=== PATIENT | female | born 1935 | race African-American/Black ===

== ENCOUNTER 2016-09-07 16:44 | Emergency (ER) | payer MEDICARE, MEDICAID ==
[~2016-09-07] VITALS: Ht 167.6 cm; Wt 55.0 kg
[~2016-09-07 16:44] MED LIST: DONE10TA14 PO; LOSA50TA6 PO
[2016-09-07 17:00] VITALS: BP 159/87
[2016-09-07] MEDS ORDERED: IV NORMAL SALINE 1,000ML 1,000 ML IV SCH (17:33)
--- NOTE | 2016-09-07 17:36 | PHYS DOC ---
General Chief Complaint: WEAKNESS/GENERALIZED Stated Complaint: WEAK Time Seen by MD: 17:33 Source: patient Exam Limitations: no limitations Problems: History of Present Illness Initial Comments Pt is 81/F to ED c/o weakness. Pt states that for the past 2-3 weeks she's been feeling progressively weaker. No specific focal complaints, pt thinks her thyroid meds need to be adjusted. No HUNTLEY/focal weakness/cp/sob/fever/chills/n/v/d, no melena/hematochezia. Pt does state "I been using diapers the past 2-3 weeks" as she has had new stress incontinence. No new/acute symptoms today, pt just tired of feeling weak and wanted to come change her thyroid meds. Timing/Duration: getting worse (2-3 weeks) Severity: moderate Modifying Factors: worse with movement, improves with rest Associated Symptoms: malaise, weakness Allergies: Coded Allergies: No Known Drug Allergies (Unverified , 09/16/15) Past Medical History Medical History: COPD, hypertension, other (hypothyroid) Surgical History: noncontributory Social History Smoker: non-smoker Alcohol: none Drugs: none Review of Systems Constitutional: see HPI, denies chills, denies diaphoresis, denies fever Respiratory: denies cough, denies shortness of breath, denies wheezing Cardiovascular: denies chest pain, denies palpitations, denies syncope Gastrointestinal: denies abdominal pain, denies diarrhea, denies nausea, denies vomiting Genitourinary: see HPI Musculoskeletal: denies back pain, denies joint swelling, denies neck pain Psychiatric/Neurological: denies headache, denies numbness, denies paresthesia , denies seizure Hematologic/Lymphatic: denies blood clots, denies easy bleeding, denies easy bruising Physical Exam General Appearance: WD/WN, no apparent distress Eyes: bilateral eye normal inspection, bilateral eye PERRL, bilateral eye EOMI Ear, Nose, Throat: hearing grossly normal, normal ENT inspection, normal pharynx (very poor dentition) Neck: non-tender, supple Respiratory: normal breath sounds, no respiratory distress Cardiovascular: normal peripheral pulses, regular rate, rhythm Gastrointestinal: non tender, soft Back: no CVA tenderness, no vertebral tenderness Extremities: non-tender, normal inspection 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 Reassuring workup, UA +, TSH pending. Departure Time of Disposition: 18:51 Disposition: 01 HOME, SELF-CARE Diagnosis: UTI, generalized weakness, hypothyroid Condition: STABLE Patient Instructions: Urinary Tract Infection, [id number] Additional Instructions: Rest, no strenuous activity. Aggressive hydration with gatorade, water. Rx: bactrim ds Follow up with your doctor in 7-10 days for recheck, urine culture results, and your thyroid test results. Return to ED with new or changing symptoms. JOE ENGLAND DO September 07, 2016 17:36
--- NOTE | 2016-09-07 17:45 | EKG ---
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
[2016-09-07 18:25] LABS: BASO % 0 % (0-3); EOS % 0 % (0-3); HEMATOCRIT 45.5 % (36.0-47.0); HEMOGLOBIN 14.8 g/dL (12.0-15.5); LYMPH # 1.3 x10^3/uL (1.0-4.8); LYMPH % 29 % (24-48); MEAN CORPUSCULAR HEMOGLOBIN 29 pg (25-35); MEAN CORPUSCULAR HGB CONC 32 g/dL (31-37); MEAN CORPUSCULAR VOLUME 89 fL (79-100); MONO # 0.6 x10^3/uL (0.0-1.1); MONO % 14 % (0-9); NEUT # 2.5 x10^3uL (1.8-7.7); NEUT % 57 % (31-73); PLATELET COUNT 131 x10^3/uL (140-400); RED CELL DISTRIBUTION WIDTH 13.4 % (11.5-14.5); WHITE BLOOD COUNT 4.5 x10^3/uL (4.0-11.0)
[2016-09-07 18:31] LABS: AMORPHOUS SEDIMENT,UR PRESENT /HPF; BACTERIA,URINE 0 /HPF (0-FEW); BILIRUBIN,URINE NEG (NEG); CLARITY,URINE CLEAR; COLOR,URINE STRAW; GLUCOSE,URINE NEG (NEG); NITRITE,URINE NEG (NEG); RBC,URINE OCC /HPF (0-2); SQUAMOUS EPITHELIAL CELL,UR OCC /LPF; UROBILINOGEN,URINE 0.2 mg/dL (0.2 mg/dL)
[2016-09-07 18:32] LABS: CALCIUM 9.1 mg/dL (8.5-10.1); CREATININE 0.8 mg/dL (0.6-1.0); GFR 83.1; POTASSIUM 4.7 mmol/L (3.5-5.1)
[2016-09-07] MEDS ORDERED: SULF1TAB24 PO (18:53)
[2016-09-07] MEDS ORDERED: SMZ/TMP 800/160MG TABLET. PO ONE (19:00)
== END 2016-09-07 19:15 | disposition home or self-care (01) ==
LOC: ER 16:44
DX: N39.0 Urinary tract infection, site not specified (principal); R53.1 Weakness; E03.9 Hypothyroidism, unspecified; I10 Essential (primary) hypertension; J44.9 Chronic obstructive pulmonary disease, unspecified
CPT/HCPCS: 36415; 80048; 81001; 84443; 84484; 85027; 87086; 93005; 96360; 99285-25; J7030

== ENCOUNTER 2016-09-12 13:11 | Emergency (ER) | payer MEDICARE, MEDICAID ==
[~2016-09-12] VITALS: Ht 167.6 cm; Wt 55.0 kg
[~2016-09-12 13:11] MED LIST changes: +SULF1TAB24 PO
[2016-09-12] MEDS ORDERED: IV NORMAL SALINE 1,000ML 1,000 ML IV SCH (13:49)
[2016-09-12 14:17] LABS: BASO % 0 % (0-3); EOS % 0 % (0-3); HEMATOCRIT 42.4 % (36.0-47.0); HEMOGLOBIN 13.9 g/dL (12.0-15.5); LYMPH # 0.8 x10^3/uL (1.0-4.8); LYMPH % 25 % (24-48); MEAN CORPUSCULAR HEMOGLOBIN 29 pg (25-35); MEAN CORPUSCULAR HGB CONC 33 g/dL (31-37); MEAN CORPUSCULAR VOLUME 88 fL (79-100); MONO # 0.5 x10^3/uL (0.0-1.1); MONO % 16 % (0-9); NEUT # 1.9 x10^3uL (1.8-7.7); NEUT % 59 % (31-73); PLATELET COUNT 119 x10^3/uL (140-400); RED BLOOD COUNT 4.81 x10^6/uL (3.50-5.40); RED CELL DISTRIBUTION WIDTH 13.5 % (11.5-14.5); WHITE BLOOD COUNT 3.2 x10^3/uL (4.0-11.0)
--- NOTE | 2016-09-12 14:47 | PHYS DOC ---
General Chief Complaint: WEAKNESS/GENERALIZED Stated Complaint: WEAKNESS Time Seen by MD: 13:31 Source: patient, old records Exam Limitations: no limitations Problems: History of Present Illness Initial Comments Patient is an 81-year-old female brought to the ED by family with complaint of generalized weakness. Patient was seen here September 07 with the same symptoms, on that day full workup was overall reassuring her urinalysis contained products of infection she was treated empirically while urine culture process. Patient states she's been taking meds as prescribed but has persistent weakness. She describes sleeplessness, loss of interest in her hobbies, low energy level, and fluctuating appetite however denies depression or suicidal ideation. She denies any pain complaints at all, she saw her primary care physician yesterday for this and amlodipine was discontinued as a possible contributor to generalized weakness. Patient says earlier today her daughter convinced her to come back to the ED because the patient was wanting to stay in bed. No fever chills sweats or body aches no chest pain probable breathing headache or focal neurologic symptoms. Overall aside from being generally weak she denies any other complaints. Weakness is at rest and with activity Timing/Duration: constant (2-3 weeks at the minimum) Severity: moderate Modifying Factors: improves with other Associated Symptoms: weakness Allergies: Coded Allergies: No Known Drug Allergies (Unverified , 09/16/15) Past Medical History Medical History: COPD, hypertension, other (hypothyroid) Surgical History: noncontributory Social History Smoker: non-smoker Alcohol: none Drugs: none Review of Systems Constitutional: denies chills, denies diaphoresis, denies fever, malaise, weakness EENTM: denies eye pain, denies blurred vision, denies ear pain, denies nose pain, denies throat pain, denies mouth pain Respiratory: denies cough, denies shortness of breath, denies wheezing Cardiovascular: denies chest pain, denies palpitations, denies syncope Gastrointestinal: denies abdominal pain, denies diarrhea, denies nausea, denies vomiting Genitourinary: denies dysuria, denies frequency, denies hematuria Musculoskeletal: denies back pain, denies joint swelling, denies neck pain Psychiatric/Neurological: see HPI, denies headache, denies numbness, denies paresthesia, denies seizure Hematologic/Lymphatic: denies blood clots, denies easy bleeding, denies easy bruising Physical Exam General Appearance: WD/WN, no apparent distress Eyes: bilateral eye normal inspection, bilateral eye PERRL, bilateral eye EOMI (social are pink) Ear, Nose, Throat: hearing grossly normal (very poor dentition with numerous missing teeth, no notable active infection swelling erythema or tenderness.), normal ENT inspection, normal pharynx (..) Neck: non-tender, supple Respiratory: chest non-tender, normal breath sounds, no respiratory distress Cardiovascular: normal peripheral pulses, regular rate, rhythm, no edema Gastrointestinal: normal bowel sounds, non tender, soft Back: no CVA tenderness, no vertebral tenderness Extremities: non-tender, normal inspection, no pedal edema 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 No STEMI Urine culture from September 07 ED visit reviewed, normal ngozi noted that pathogenic organisms. Patient advised to discontinue her antibiotics. TSH reviewed from September 07 visit, within normal limits. Troponin by i-STAT is 0/undetectable, basic by i-STAT reassuring/unremarkable hemoglobin 16.3 I discussed the patient's symptoms with her and her daughter at length their questions answered. No specific emergent cause for her weakness noted in the ED. Outpatient workup indicated should symptoms persist. Today's WBC count 3.2 with 16 monocytes 119 platelets. Findings are nonspecific and possible occult viral process. Patient advised to continue following her primary care physician' s instructions regarding discontinuing amlodipine, advised to increase fluid intake and discontinue antibiotics. Follow-up with your doctor Thursday and return to the ED as needed. She expressed agreement and understanding of the treatment plan Departure Time of Disposition: 15:32 Disposition: HOME, SELF-CARE Diagnosis: generalized weakness Condition: STABLE Patient Instructions: Weakness, [id number] Additional Instructions: As discussed, no specific cause for your weakness was evident from today's visit. Discontinue the antibiotics prescribed on September 07 as urine culture did not grow out pathogenic bacteria. Aggressive hydration with Gatorade and water. Maintain a consistent diet. Follow-up with your doctor on Thursday to continue outpatient evaluation for generalized weakness. May require outpatient cardiology or psychiatry referrals. Return to the ED with new or changing symptoms. JOE ENGLAND DO Sep 12, 2016 14:47
[2016-09-12 15:09] LABS: HEMOGLOBIN ISTAT 16.3 gm/dL; POTASSIUM ISTAT 4.3 mmol/L (3.5-5.0)
[2016-09-12 15:50] VITALS: BP 140/66
--- NOTE | 2016-09-12 18:44 | EKG ---
[address] [address] Test Date: 2016-09-12 Test Time: 13:37:35 Pat Name: FELIPE GONZALES Department: Room: Gender: F Pharmacy Intake Technician: ANGELA : 1935 Requested By: JOE ENGLAND Order Number: [id number] Reading MD: Christiano Eaton Measurements Intervals [place] Rate: 68 P: 42 ME: 164 QRS: 25 QRSD: 64 T: 39 QT: 362 QTc: 389 Interpretive Statements SINUS RHYTHM NON SPECIFIC ST-T ABNORMALITY (ELEVATION) OTHERWISE NORMAL ECG RI6.01 Unconfirmed report Compared to ECG 09/07/2016 17:45:41 ST (T wave) deviation now present Electronically Signed On 09-17-2016 9:31:35 CDT by Christiano Eaton
== END 2016-09-12 15:50 | disposition home or self-care (01) ==
LOC: ER 13:11
DX: R53.1 Weakness (principal); G47.00 Insomnia, unspecified; E03.9 Hypothyroidism, unspecified; I10 Essential (primary) hypertension; J44.9 Chronic obstructive pulmonary disease, unspecified
CPT/HCPCS: 36415; 80047; 84484; 85027; 93005; 96360; 99285-25; J7030

== ENCOUNTER 2017-08-24 14:34 | Emergency (ER) | payer MEDICARE, OTHER ==
[~2017-08-24] VITALS: Ht 152.4 cm; Wt 45.0 kg
[2017-08-24] MEDS ORDERED: IOHEXOL 300 MG/ML 75 ML VIAL. IV ONE (15:15)
[2017-08-24 15:31] LABS: BASO % 0 % (0-3); EOS % 0 % (0-3); HEMATOCRIT 40.7 % (36.0-47.0); HEMOGLOBIN 13.3 g/dL (12.0-15.5); LYMPH # 0.7 x10^3/uL (1.0-4.8); LYMPH % 11 % (24-48); MEAN CORPUSCULAR HEMOGLOBIN 29 pg (25-35); MEAN CORPUSCULAR HGB CONC 33 g/dL (31-37); MEAN CORPUSCULAR VOLUME 89 fL (79-100); MONO # 0.4 x10^3/uL (0.0-1.1); MONO % 7 % (0-9); NEUT # 5.3 x10^3uL (1.8-7.7); NEUT % 82 % (31-73); PLATELET COUNT 150 x10^3/uL (140-400); RED BLOOD COUNT 4.58 x10^6/uL (3.50-5.40); RED CELL DISTRIBUTION WIDTH 14.2 % (11.5-14.5); WHITE BLOOD COUNT 6.4 x10^3/uL (4.0-11.0)
[2017-08-24 15:42] LABS: ALBUMIN 3.8 g/dL (3.4-5.0); ALBUMIN/GLOBULIN RATIO 1.2 (1.0-1.7); CALCIUM 8.9 mg/dL (8.5-10.1); CREATININE 0.8 mg/dL (0.6-1.0); GFR 82.9; POTASSIUM 3.6 mmol/L (3.5-5.1); TOTAL BILIRUBIN 0.6 mg/dL (0.2-1.0); TOTAL PROTEIN 7.1 g/dL (6.4-8.2)
[2017-08-24] MEDS ORDERED: HYDROmorphone PF 2 MG/ML VIAL IV/SQ PRN (17:00)
--- NOTE | 2017-08-24 17:04 | EKG ---
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
--- NOTE | 2017-08-24 17:11 | RAD ---
CT Abdomen and Pelvis With Intravenous Contrast: History: Epigastric pain after fall this morning. Comparison: None. Technique: After administration of intravenous contrast, 75 mL Omnipaque-300, CT of the abdomen and pelvis was performed. Exposure: One or more of the following individualized dose reduction techniques were utilized for this examination: 1. Automated exposure control 2. Adjustment of the mA and/or kV according to patient size 3. Use of iterative reconstruction technique Findings: Evaluation of enteric structures may be limited by lack of oral contrast. No free air is seen in the abdomen or pelvis. Trace amount free fluid present in the right hemipelvis, abnormal in a patient of this age. Liver, spleen, pancreas, and bilateral adrenal glands unremarkable. Aortic atherosclerosis is seen. Gallbladder is unremarkable. Bilateral kidneys enhance symmetrically. Callus cases involving left renal hilum are favored to be vascular. There are dilated small bowel loops measuring up to 3 cm in diameter. There is thought to be a transition point present in the midline of the pelvis (axial image 53), probably mid ileum. The distal ileum is collapsed. Several loops of dilated small bowel demonstrate mild inflammatory wall thickening and hyperenhancement. Degenerative changes are present in the spine. Impression: 1. Small bowel obstruction. Transition point is seen in the pelvis, thought to involve the mid ileum. The distal ileum is collapsed. 2. Several loops of dilated small bowel demonstrate mild wall thickening and hyperenhancement, suggesting mild inflammation. There is a small amount free fluid present in the pelvis. Electronically signed by: Jermaine De Oliveira MD (08/24/2017 5:08 PM) [facility]
--- NOTE | 2017-08-24 17:13 | RAD ---
EXAM: Chest, single view. HISTORY: Chest pain. COMPARISON: None. FINDINGS: A frontal view of the chest is obtained. There is no infiltrate, effusion or pneumothorax. The heart is normal in size. There is increased opacity along the inferior lateral right thorax due to asymmetric overlying soft tissue. There are advanced degenerative changes involving both shoulders. IMPRESSION: No acute pulmonary finding. Electronically signed by: Valentina Hilario MD (08/24/2017 5:10 PM) [facility]
[2017-08-24] MEDS ORDERED: PROCHLORPERAZINE 10 MG/2 ML VIAL. IV ONE (17:20)
--- NOTE | 2017-08-24 17:31 | PHYS DOC ---
Past History Past Medical History: Hypertension, Hypothyroid Past Surgical History: No Surgical History Alcohol Use: None Drug Use: None Adult General Chief Complaint Chief Complaint: MECHANICAL FALL HPI HPI 82-year-old female presents with epigastric abdominal pain after a fall at home. Patient tripped over something on the floor and hit her abdomen against the coffee table. She denies hitting her head or loss of consciousness. She is able recall all of the events of the fall and afterward. This occurred around 11 AM this morning. Patient arrived about 4 hours later with worsening abdominal pain. Patient denies vomiting but has mild nausea. She denies fever or chills. She is no other injuries. Review of Systems Review of Systems Constitutional: Denies fever or chills [] Eyes: Denies change in visual acuity, redness, or eye pain [] HENT: Denies nasal congestion or sore throat [] Respiratory: Denies cough or shortness of breath [] Cardiovascular: No additional information not addressed in HPI [] GI: abdominal pain [] : Denies dysuria or hematuria [] Musculoskeletal: Denies back pain or joint pain [] Integument: Denies rash or skin lesions [] Neurologic: Denies headache, focal weakness or sensory changes [] Endocrine: Denies polyuria or polydipsia [] All other systems were reviewed and found to be within normal limits, except as documented in this note. Current Medications Current Medications Current Medications Medications (Trade) Dose Ordered Sig/Silvano Start Time Stop Time Status Last Admin Dose Admin Hydromorphone HCl (Dilaudid) 0.5 mg PRN Q15MIN PRN 08/24/17 17:00 08/25/17 16:59 08/24/17 17:08 0.5 MG Iohexol (Omnipaque 300 Mg/ml) 75 ml 1X ONCE 08/24/17 15:15 08/24/17 15:16 DC 08/24/17 16:11 75 ML Prochlorperazine Edisylate (Compazine) 5 mg 1X ONCE 08/24/17 17:20 08/24/17 17:21 DC 08/24/17 17:07 5 MG Allergies Allergies Allergies Coded Allergies Type Severity Reaction Last Updated Verified No Known Drug Allergies 08/24/17 No Physical Exam Physical Exam Constitutional: Well developed, well nourished, no acute distress, non-toxic appearance. [] HENT: Normocephalic, atraumatic, bilateral external ears normal, oropharynx moist, no oral exudates, nose normal. [] Eyes: PERRLA, EOMI, conjunctiva normal, no discharge. [] Neck: Normal range of motion, no tenderness, supple, no stridor. [] Cardiovascular:Heart rate regular rhythm, no murmur [] Lungs & Thorax: Bilateral breath sounds clear to auscultation [] Abdomen: Bowel sounds normal, soft, tenderness below umbilicus. [] Skin: Warm, dry, no erythema, no rash. [] Back: No tenderness, no CVA tenderness. [] Extremities: No tenderness, no cyanosis, no clubbing, ROM intact, no edema. [] Neurologic: Alert and oriented X 3, normal motor function, normal sensory function, no focal deficits noted. [] Psychologic: Affect normal, judgement normal, mood normal. [] Current Patient Data Vital Signs Vital Signs Date Time Temp Pulse Resp B/P (MAP) Pulse Ox O2 Delivery O2 Flow Rate FiO2 08/24/17 17:08 16 Room Air 08/24/17 16:41 79 165/73 (103) 98 08/24/17 14:46 98.2 Lab Results Laboratory Tests Test 08/24/17 15:14 White Blood Count 6.4 x10^3/uL (4.0-11.0) Red Blood Count 4.58 x10^6/uL (3.50-5.40) Hemoglobin 13.3 g/dL (12.0-15.5) Hematocrit 40.7 % (36.0-47.0) Mean Corpuscular Volume 89 fL (79-100) Mean Corpuscular Hemoglobin 29 pg (25-35) Mean Corpuscular Hemoglobin Concent 33 g/dL (31-37) Red Cell Distribution Width 14.2 % (11.5-14.5) Platelet Count 150 x10^3/uL (140-400) Neutrophils (%) (Auto) 82 % (31-73) H Lymphocytes (%) (Auto) 11 % (24-48) L Monocytes (%) (Auto) 7 % (0-9) Eosinophils (%) (Auto) 0 % (0-3) Basophils (%) (Auto) 0 % (0-3) Neutrophils # (Auto) 5.3 x10^3uL (1.8-7.7) Lymphocytes # (Auto) 0.7 x10^3/uL (1.0-4.8) L Monocytes # (Auto) 0.4 x10^3/uL (0.0-1.1) Eosinophils # (Auto) 0.0 x10^3/uL (0.0-0.7) Basophils # (Auto) 0.0 x10^3/uL (0.0-0.2) Sodium Level 138 mmol/L (136-145) Potassium Level 3.6 mmol/L (3.5-5.1) Chloride Level 100 mmol/L (98-107) Carbon Dioxide Level 27 mmol/L (21-32) Anion Gap 11 (6-14) Blood Urea Nitrogen 14 mg/dL (7-20) Creatinine 0.8 mg/dL (0.6-1.0) Estimated GFR (Cockcroft-Gault) 82.9 BUN/Creatinine Ratio 18 (6-20) Glucose Level 88 mg/dL (70-99) Calcium Level 8.9 mg/dL (8.5-10.1) Total Bilirubin 0.6 mg/dL (0.2-1.0) Aspartate Amino Transferase (AST) 16 U/L (15-37) Alanine Aminotransferase (ALT) 20 U/L (14-59) Alkaline Phosphatase 109 U/L (46-116) Troponin I Quantitative < 0.017 ng/mL (0-0.055) Total Protein 7.1 g/dL (6.4-8.2) Albumin 3.8 g/dL (3.4-5.0) Albumin/Globulin Ratio 1.2 (1.0-1.7) EKG EKG Normal sinus rhythm, rate 73, normal axis, no ST elevations or depressions.[] Radiology/Procedures Radiology/Procedures CT Abdomen and Pelvis With Intravenous Contrast: History: Epigastric pain after fall this morning. Comparison: None. Technique: After administration of intravenous contrast, 75 mL Omnipaque-300, CT of the abdomen and pelvis was performed. Exposure: One or more of the following individualized dose reduction techniques were utilized for this examination: 1. Automated exposure control 2. Adjustment of the mA and/or kV according to patient size 3. Use of iterative reconstruction technique Findings: Evaluation of enteric structures may be limited by lack of oral contrast. No free air is seen in the abdomen or pelvis. Trace amount free fluid present in the right hemipelvis, abnormal in a patient of this age. Liver, spleen, pancreas, and bilateral adrenal glands unremarkable. Aortic atherosclerosis is seen. Gallbladder is unremarkable. Bilateral kidneys enhance symmetrically. Callus cases involving left renal hilum are favored to be vascular. There are dilated small bowel loops measuring up to 3 cm in diameter. There is thought to be a transition point present in the midline of the pelvis (axial image 53), probably mid ileum. The distal ileum is collapsed. Several loops of dilated small bowel demonstrate mild inflammatory wall thickening and hyperenhancement. Degenerative changes are present in the spine. Impression: 1. Small bowel obstruction. Transition point is seen in the pelvis, thought to involve the mid ileum. The distal ileum is collapsed. 2. Several loops of dilated small bowel demonstrate mild wall thickening and hyperenhancement, suggesting mild inflammation. There is a small amount free fluid present in the pelvis. Electronically signed by: Jermaine De Oliveira MD (08/24/2017 5:08 PM) [place] [id number] EXAM: Chest, single view. HISTORY: Chest pain. COMPARISON: None. FINDINGS: A frontal view of the chest is obtained. There is no infiltrate, effusion or pneumothorax. The heart is normal in size. There is increased opacity along the inferior lateral right thorax due to asymmetric overlying soft tissue. There are advanced degenerative changes involving both shoulders. IMPRESSION: No acute pulmonary finding. Electronically signed by: Valentina Hilario MD (08/24/2017 5:10 PM) [facility] [] Course & Med Decision Making Course & Med Decision Making Pertinent Labs and Imaging studies reviewed. (See chart for details) The patient's initial labs are unremarkable. Her CT of the abdomen and pelvis shows a small bowel obstruction. I have additionally ordered EKG, chest x-ray, and lactic acid. Patient's EKG is unremarkable. Her chest x-ray is unremarkable. Discussed the case with the surgeon, Dr. Cosby. He has advised an NG tube and admitting the patient at [facility] to the hospitalist. I then contacted the hospitalist Dr. Genao and she has accepted the patient for admission. Discussed this with the patient and the family and they are in agreement. Dragon Disclaimer Dragon Disclaimer This electronic medical record was generated, in whole or in part, using a voice recognition dictation system. Departure Departure: Referrals: LORI ROMERO (PCP) ANNIKA PEREZ DO August 24, 2017 17:31
[2017-08-24 19:43] VITALS: BP 171/83
== END 2017-08-24 19:45 | disposition short-term general hospital (02) ==
LOC: ER 14:34
DX: K56.699 Other intestinal obstruction unspecified as to partial versus complete obstruction (principal); E03.9 Hypothyroidism, unspecified; I10 Essential (primary) hypertension; W01.198A Fall on same level from slipping, tripping and stumbling with subsequent striking against other object, initial encounter; Y93.89 Activity, other specified; Y99.8 Other external cause status; Y92.098 Other place in other non-institutional residence as the place of occurrence of the external cause
CPT/HCPCS: 36415; 43752; 71045; 74177; 80053; 83605; 84484; 85025; 93005; 96374; 96375; 99285; J0780; J1170; Q9967; 31500

== ENCOUNTER 2019-01-24 15:52 | Emergency (ER) | payer MEDICARE, MEDICAID ==
[~2019-01-24] VITALS: Ht 167.6 cm; Wt 45.0 kg
[~2019-01-24 15:52] MED LIST changes: -LOSA50TA6 PO; +LOSA50TA86 PO
[2019-01-24] MEDS ORDERED: IV NORMAL SALINE 1,000ML 1,000 ML IV ONE (16:15)
--- NOTE | 2019-01-24 16:38 | EKG ---
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
[2019-01-24 17:06] LABS: BASO % 1 % (0-3); EOS # 0.1 x10^3/uL (0.0-0.7); EOS % 2 % (0-3); HEMATOCRIT 42.2 % (36.0-47.0); HEMOGLOBIN 13.5 g/dL (12.0-15.5); LYMPH # 0.8 x10^3/uL (1.0-4.8); LYMPH % 24 % (24-48); MEAN CORPUSCULAR HEMOGLOBIN 29 pg (25-35); MEAN CORPUSCULAR HGB CONC 32 g/dL (31-37); MEAN CORPUSCULAR VOLUME 91 fL (79-100); MONO # 0.5 x10^3/uL (0.0-1.1); MONO % 16 % (0-9); NEUT % 58 % (31-73); PLATELET COUNT 133 x10^3/uL (140-400); RED BLOOD COUNT 4.65 x10^6/uL (3.50-5.40); RED CELL DISTRIBUTION WIDTH 13.7 % (11.5-14.5); WHITE BLOOD COUNT 3.4 x10^3/uL (4.0-11.0)
--- NOTE | 2019-01-24 17:06 | RAD ---
AP chest x-ray COMPARISON: Chest x-ray August 24, 2017 and priors. HISTORY: Weakness. FINDINGS: Calcified granulomas right lung base stable to prior x-rays back to 2016. Calcified granulomas left lower lobe and left hilum also stable. There is deviation of the cervicothoracic trachea to the left similar but more pronounced relative to prior x-rays. Aortic arch calcified plaque. Heart size normal. No pneumothorax, pleural opacities or pleural effusions. Thoracic disc osteophytes and mild scoliosis. Arthritic change shoulders. IMPRESSION: 1. No acute process in the chest. 2. Leftward deviation of the cervicothoracic trachea more pronounced relative to prior studies could indicate an enlarging thyroid nodule/mass, cervical mass/adenopathy or aneurysm. 3. Old granulomatous process again noted. Electronically signed by: Maldonado Dalton MD (01/24/2019 5:03 PM) [facility]
--- NOTE | 2019-01-24 17:16 | RAD ---
CT head without contrast. CT cervical spine without contrast. PQRS statement: CT scans at this facility use dose reduction including either automated exposure control, iterative reconstructions, and /or weight based radiation dosing via mA and kV modification when appropriate to reduce radiation dose to as low as reasonably achievable. HISTORY: Fall. Neck pain. TECHNIQUE: Noncontrast CT imaging of the head and cervical spine multiplanar reconstructions was acquired. COMPARISON: CT head May 09, 2015. CT head findings: There is cavitary encephalomalacia of the right parietal lobe above the parietal occipital sulcus new from priorexam most likely an chronic infarct or sequela of old trauma. No acute ischemic change evident. Extensive cerebral white matter hypoattenuation is more pronounced may represent progressive small vessel ischemic disease. Generalized brain atrophy is stable. No intracranial hemorrhage, mass or hydrocephalus. Chronic right thalamus hypodense ischemic infarct stable. Intracranial arterial vascular calcifications. Opacification of the left frontal, ethmoid and maxillary sinuses similar the prior exam. Orbits, mastoids and bones are unremarkable. IMPRESSION: No acute intracranial CT abnormality. 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 Chronic sinus disease as described above. CT cervical spine findings: Precervical junction intact. Cervical vertebral body height and alignment intact. 2 mm anterolisthesis of C4 on C5 associated with advanced facet arthritis. 1 mm anterolisthesis of C7 on T1 associated with advanced facet arthritis. No fracture of the cervical spine. Right apex 7 mm subsolid pulmonary nodule the solid component represents 5-6 mm of the nodule. Multilevel cervical disc height loss, disc bulges, endplate spurs, uncovertebral spurs and facet spurs with spinal canal and neural foraminal stenoses. Thyroid nodules with a 3 cm dominant right thyroid lobe nodule with calcification. IMPRESSION: 1. No acute osseous injury of the cervical spine. Cervical disc disease as described above. 2. 3 cm partially calcified right thyroid lobe nodule. Consider further assessment with thyroid sonography given its size and calcification which likely increases the probability of neoplasia, to assess for fine-needle aspiration. 3. 7 mm subsolid right upper lobe pulmonary nodule as described above per Fleischner guidelines consider follow-up CT imaging in 3-6 months to document that this resolves or remains stable. Electronically signed by: Maldonado Dalton MD (01/24/2019 5:13 PM) [facility]
[2019-01-24 17:19] LABS: ALBUMIN 3.2 g/dL (3.4-5.0); ALBUMIN/GLOBULIN RATIO 0.9 (1.0-1.7); CALCIUM 8.5 mg/dL (8.5-10.1); CREATININE 0.8 mg/dL (0.6-1.0); GFR 82.7; TOTAL BILIRUBIN 0.3 mg/dL (0.2-1.0); TOTAL PROTEIN 6.8 g/dL (6.4-8.2)
[2019-01-24 17:20] LABS: POTASSIUM 4.2 mmol/L (3.5-5.1)
[2019-01-24] MEDS ORDERED: NAPR-695 PO (18:08)
--- NOTE | 2019-01-24 18:08 | PHYS DOC ---
Past History Past Medical History: Hypertension, Hypothyroid Additional Past Medical Histor: Possible dementia (NESTOR WARREN DO) Past Surgical History: Other Additional Past Surgical Histo: GI (NESTOR WARREN DO) Smoking: Quit Greater Than 1 Year Alcohol Use: None Drug Use: None (NESTOR WARREN DO) Adult General Chief Complaint Chief Complaint: Neck Pain HPI HPI 83-year-old female presents with her family with report of neck pain. Patient reports history of fall approximately 4-5 days ago. Patient does not specifically remember how she fell. Denies any headache. Denies chest pain. Denies shortness of breath. Patient reports some increased urinary frequency. Family reports concern that patient might have some short-term memory loss possibly secondary to dementia however patient has not had a official diagnosis. Family reports patient has been acting otherwise normal. (NESTOR WARREN DO) Review of Systems Review of Systems Constitutional: Denies fever or chills Eyes: Denies redness or eye pain HENT: Denies nasal congestion or sore throat Respiratory: Denies cough or shortness of breath Cardiovascular: Denies chest pain or palpitations GI: Denies abdominal pain, nausea, or vomiting : Denies hematuria; reports urinary frequency Musculoskeletal: Denies joint pain; reports neck pain Integument: Denies rash or skin lesions Neurologic: Denies headache, focal weakness or sensory changes Complete systems were reviewed and found to be within normal limits, except as documented in this note. (NESTOR WARREN DO) Current Medications Current Medications Current Medications Medications (Trade) Dose Ordered Sig/Silvano Start Time Stop Time Status Last Admin Dose Admin Sodium Chloride 1,000 ml @ 1,000 mls/hr 1X ONCE 01/24/19 16:15 01/24/19 17:14 DC 01/24/19 16:15 1,000 MLS/HR (NESTOR WARREN DO) Allergies Allergies Allergies Coded Allergies Type Severity Reaction Last Updated Verified No Known Drug Allergies 08/24/17 No (NESTOR WARREN DO) Physical Exam Physical Exam Constitutional: Well developed, well nourished, no acute distress, non-toxic appearance HENT: Normocephalic, atraumatic, oropharynx moist Eyes: PERRL, EOMI, conjunctiva normal, no discharge Neck: Normal range of motion, no midline tenderness, mild paraspinal tenderness at base of skull, supple Cardiovascular: Heart rate normal, regular rhythm Lungs & Thorax: Bilateral breath sounds clear to auscultation, no wheezing Abdomen: Soft, no tenderness Skin: Warm, dry, no erythema, no rash Back: No tenderness, no CVA tenderness Extremities: No tenderness, ROM intact, no edema Neurologic: Alert and oriented X 2, patient confused to year but able to give month and president, normal motor function, normal sensory function, no focal deficits noted Psychologic: Affect normal, judgement normal (NESTOR WARREN DO) Current Patient Data Vital Signs Vital Signs Date Time Temp Pulse Resp B/P (MAP) Pulse Ox O2 Delivery O2 Flow Rate FiO2 01/24/19 16:13 97.8 90 18 98 Room Air Lab Results Laboratory Tests Test 01/24/19 16:25 White Blood Count 3.4 x10^3/uL (4.0-11.0) L Red Blood Count 4.65 x10^6/uL (3.50-5.40) Hemoglobin 13.5 g/dL (12.0-15.5) Hematocrit 42.2 % (36.0-47.0) Mean Corpuscular Volume 91 fL (79-100) Mean Corpuscular Hemoglobin 29 pg (25-35) Mean Corpuscular Hemoglobin Concent 32 g/dL (31-37) Red Cell Distribution Width 13.7 % (11.5-14.5) Platelet Count 133 x10^3/uL (140-400) L Neutrophils (%) (Auto) 58 % (31-73) Lymphocytes (%) (Auto) 24 % (24-48) Monocytes (%) (Auto) 16 % (0-9) H Eosinophils (%) (Auto) 2 % (0-3) Basophils (%) (Auto) 1 % (0-3) Neutrophils # (Auto) 2.0 x10^3uL (1.8-7.7) Lymphocytes # (Auto) 0.8 x10^3/uL (1.0-4.8) L Monocytes # (Auto) 0.5 x10^3/uL (0.0-1.1) Eosinophils # (Auto) 0.1 x10^3/uL (0.0-0.7) Basophils # (Auto) 0.0 x10^3/uL (0.0-0.2) Prothrombin Time 10.0 SEC (9.4-11.4) Prothrombin Time INR 1.0 (0.9-1.1) Activated Partial Thromboplast Time 24 SEC (23-33) Sodium Level 139 mmol/L (136-145) Potassium Level 4.2 mmol/L (3.5-5.1) Chloride Level 103 mmol/L (98-107) Carbon Dioxide Level 28 mmol/L (21-32) Anion Gap 8 (6-14) Blood Urea Nitrogen 12 mg/dL (7-20) Creatinine 0.8 mg/dL (0.6-1.0) Estimated GFR (Cockcroft-Gault) 82.7 BUN/Creatinine Ratio 15 (6-20) Glucose Level 99 mg/dL (70-99) Lactic Acid Level 2.0 mmol/L (0.4-2.0) Calcium Level 8.5 mg/dL (8.5-10.1) Magnesium Level 2.0 mg/dL (1.8-2.4) Total Bilirubin 0.3 mg/dL (0.2-1.0) Aspartate Amino Transferase (AST) 17 U/L (15-37) Alanine Aminotransferase (ALT) 11 U/L (14-59) L Alkaline Phosphatase 99 U/L (46-116) Total Protein 6.8 g/dL (6.4-8.2) Albumin 3.2 g/dL (3.4-5.0) L Albumin/Globulin Ratio 0.9 (1.0-1.7) L (NESTOR WARREN DO) EKG EKG @1636 NSR at 80bpm, NO ST elevation, QRS 64ms, QT/QTc 368/428ms (NESTOR WARREN DO) Radiology/Procedures Radiology/Procedures PROCEDURE: CHEST AP ONLY AP chest x-ray COMPARISON: Chest x-ray August 24, 2017 and priors. HISTORY: Weakness. FINDINGS: Calcified granulomas right lung base stable to prior x-rays back to 2016. Calcified granulomas left lower lobe and left hilum also stable. There is deviation of the cervicothoracic trachea to the left similar but more pronounced relative to prior x-rays. Aortic arch calcified plaque. Heart size normal. No pneumothorax, pleural opacities or pleural effusions. Thoracic disc osteophytes and mild scoliosis. Arthritic change shoulders. IMPRESSION: 1. No acute process in the chest. 2. Leftward deviation of the cervicothoracic trachea more pronounced relative to prior studies could indicate an enlarging thyroid nodule/mass, cervical mass/adenopathy or aneurysm. 3. Old granulomatous process again noted. Electronically signed by: Maldonado Dalton MD (01/24/2019 5:03 PM) [facility] PROCEDURE: CT HEAD AND CERVICAL SPINE WO CT head without contrast. CT cervical spine without contrast. PQRS statement: CT scans at this facility use dose reduction including either automated exposure control, iterative reconstructions, and /or weight based radiation dosing via mA and kV modification when appropriate to reduce radiation dose to as low as reasonably achievable. HISTORY: Fall. Neck pain. TECHNIQUE: Noncontrast CT imaging of the head and cervical spine multiplanar reconstructions was acquired. COMPARISON: CT head May 09, 2015. CT head findings: There is cavitary encephalomalacia of the right parietal lobe above the parietal occipital sulcus new from priorexam most likely an chronic infarct or sequela of old trauma. No acute ischemic change evident. Extensive cerebral white matter hypoattenuation is more pronounced may represent progressive small vessel ischemic disease. Generalized brain atrophy is stable. No intracranial hemorrhage, mass or hydrocephalus. Chronic right thalamus hypodense ischemic infarct stable. Intracranial arterial vascular calcifications. Opacification of the left frontal, ethmoid and maxillary sinuses similar the prior exam. Orbits, mastoids and bones are unremarkable. IMPRESSION: No acute intracranial CT abnormality. 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 Chronic sinus disease as described above. CT cervical spine findings: Precervical junction intact. Cervical vertebral body height and alignment intact. 2 mm anterolisthesis of C4 on C5 associated with advanced facet arthritis. 1 mm anterolisthesis of C7 on T1 associated with advanced facet arthritis. No fracture of the cervical spine. Right apex 7 mm subsolid pulmonary nodule the solid component represents 5-6 mm of the nodule. Multilevel cervical disc height loss, disc bulges, endplate spurs, uncovertebral spurs and facet spurs with spinal canal and neural foraminal stenoses. Thyroid nodules with a 3 cm dominant right thyroid lobe nodule with calcification. IMPRESSION: 1. No acute osseous injury of the cervical spine. Cervical disc disease as described above. 2. 3 cm partially calcified right thyroid lobe nodule. Consider further assessment with thyroid sonography given its size and calcification which likely increases the probability of neoplasia, to assess for fine-needle aspiration. 3. 7 mm subsolid right upper lobe pulmonary nodule as described above per Fleischner guidelines consider follow-up CT imaging in 3-6 months to document that this resolves or remains stable. Electronically signed by: Maldonado Dalton MD (01/24/2019 5:13 PM) [facility] (NESTOR WARREN DO) Course & Med Decision Making Course & Med Decision Making Pertinent Labs and Imaging studies reviewed. (See chart for details) Patient presents with report of fall at home however cannot remember why she fell. Patient apparently has had some difficulty with her short-term memory. 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 Patient otherwise neurologically intact. No midline cervical spine tenderness noted. No signs of skull fracture. CT head/cervical spine without traumatic injury. Patient noted to have incidental thyroid nodule as well as pulmonary nodule. A copy of CT imaging provided to patient for outpatient follow-up. Chest x-ray without signs of infection. Labs obtained and posted to chart. Thyroid studies pending for PCP. UA without signs of infection. Patient stable for discharge with outpatient follow-up with PCP. Discussed findings and plan with patient and family, who acknowledge understanding and agreement. (NESTOR WARREN DO) Dragon Disclaimer Dragon Disclaimer This electronic medical record was generated, in whole or in part, using a voice recognition dictation system. (NESTOR WARREN DO) Departure Departure: Impression: Primary Impression: Fall Additional Impressions: Neck pain Thyroid nodule Incidental pulmonary nodule Disposition: HOME, SELF-CARE Condition: STABLE Referrals: LORI ROMERO (PCP) Patient Instructions: Cervical Sprain, [id number], Fall Prevention and Home Safety, [id number], Pulmonary Nodule, [id number], Thyroid Cyst Additional Instructions: Please give CT imaging to your family physician for further evaluation of your thyroid nodule and pulmonary nodule. Scripts Naproxen (NAPROXEN) 375 Mg Tablet 1 TAB PO BID PRN for PAIN, #20 TAB 0 Refills with food Prov: NESTOR WARREN DO 01/24/19 Discharge Instructions - Activity: You might feel a little sleepy until tomorrow. This is due to the medicine you received to relax you. Until tomorrow, you should: NOT drive a car, operate machinery or power tools. NOT drink any alcoholic beverages. NOT make any important decisions or sign important papers. Do not return to work until tomorrow, unless otherwise instructed. Resume p revious activities tomorrow. Diet: Start by taking liquids. If you tolerate liquids, advance to solid food. (GILMA NIETO MD) - Activity: You might feel a little sleepy until tomorrow. This is due to the medicine you received to relax you. Until tomorrow, you should: NOT drive a car, operate machinery or power tools. NOT drink any alcoholic beverages. NOT make any important decisions or sign important papers. Do not return to work until tomorrow, unless otherwise instructed. Resume previous activities tomorrow. Diet: Start by taking liquids. If you tolerate liquids, advance to solid food. (NESTOR WARREN DO) Problem Qualifiers Primary Impression: Fall Encounter type: initial encounter Qualified Codes: W19.XXXA - Unspecified fall, initial encounter NESTOR WARREN DO Jan 24, 2019 18:08 GILMA NIETO MD Jan 25, 2019 06:48
[2019-01-24 18:28] VITALS: BP 148/60
[2019-01-24 19:28] LABS: BACTERIA,URINE MOD /HPF (0-FEW); BILIRUBIN,URINE NEG (NEG); CLARITY,URINE HAZY; COLOR,URINE YELLOW; GLUCOSE,URINE NEG (NEG); NITRITE,URINE NEG (NEG); RBC,URINE 0 /HPF (0-2); SQUAMOUS EPITHELIAL CELL,UR MANY /LPF; UROBILINOGEN,URINE 1 mg/dL (0.2 mg/dL)
[2019-01-25 13:18] LABS: FREE T4 0.93 ng/dL (0.76-1.46); THYROID STIM HORMONE (TSH) 0.34 uIU/mL (0.358-3.740)
== END 2019-01-24 20:05 | disposition home or self-care (01) ==
LOC: ER 15:52
DX: M54.2 Cervicalgia (principal); E04.1 Nontoxic single thyroid nodule; R91.1 Solitary pulmonary nodule; I10 Essential (primary) hypertension; E03.9 Hypothyroidism, unspecified; Z87.891 Personal history of nicotine dependence; W18.39XA Other fall on same level, initial encounter; Y93.89 Activity, other specified; Y92.89 Other specified places as the place of occurrence of the external cause; Y99.8 Other external cause status
CPT/HCPCS: 36415; 70450; 71045; 72125; 80053; 81001; 83605; 83735; 84439; 84443; 84481; 85025; 85610; 85730; 87086; 93005; 99285-25; J7030

== ENCOUNTER 2019-03-25 11:01 | Inpatient (IN) | payer MEDICARE, MEDICAID ==
[~2019-03-25] VITALS: Ht 165.1 cm; Wt 52.6 kg
[~2019-03-25 11:01] MED LIST changes: +NAPR-695 PO
[2019-03-25] MEDS ORDERED: IV NORMAL SALINE 500ML 500 ML IV ONE (11:30)
--- NOTE | 2019-03-25 11:32 | PHYS DOC ---
Past History Past Medical History: Dementia, Hypertension, Hypothyroid Additional Past Medical Histor: Possible dementia Past Surgical History: Other Additional Past Surgical Histo: GI Smoking: Quit Greater Than 1 Year Alcohol Use: None Drug Use: None Adult General Chief Complaint Chief Complaint: ALTERED MENTAL STATUS HPI HPI Patient is a 84-year-old female brought in by EMS due to altered mental status. Patient was last seen normal at approximately 9:30 last night, by her daughter. This morning as daughter came to visit her mom she noted decreased mental status. EMS notes that her fingerstick blood sugar was 134. Patient relates that she had been sick, with nausea and vomiting, after her daughter left last night. She denies any diarrhea. Denies any blood in the emesis. Denies any recent travel or fever. History is limited from the patient due to her known history of dementia. Additional history is from her daughter who notes the patient has a thyroid nodule that is due to have a fine-needle aspiration on March 29, 2019.[] Review of Systems Review of Systems Constitutional: Denies fever or chills [] Eyes: Denies change in visual acuity, redness, or eye pain [] HENT: Denies nasal congestion or sore throat [] Respiratory: Denies cough or shortness of breath [] Cardiovascular: No chest pain or palpitations[] GI: Denies abdominal pain, nausea, vomiting, bloody stools or diarrhea [] : Denies dysuria or hematuria [] Musculoskeletal: Denies back pain or joint pain [] Integument: Denies rash or skin lesions [] Neurologic: Denies headache, focal weakness or sensory changes [] Endocrine: Denies polyuria or polydipsia [] All other systems were reviewed and found to be within normal limits, except as documented in this note. Allergies Allergies Allergies Coded Allergies Type Severity Reaction Last Updated Verified No Known Drug Allergies 08/24/17 No Physical Exam Physical Exam Constitutional: Well developed, well nourished, slow to answer. [] HENT: Normocephalic, atraumatic, bilateral external ears normal, oropharynx dry, no oral exudates, nose normal. [] Eyes: PERRLA, EOMI, conjunctiva normal, no discharge. [] Neck: Normal range of motion, no tenderness, supple, no stridor. [] Cardiovascular:Heart rate regular rhythm, no murmur [] Lungs & Thorax: Bilateral breath sounds clear to auscultation [] Abdomen: Bowel sounds normal, soft, no tenderness, no masses, no pulsatile masses. [] Skin: Warm, dry, no erythema, no rash. [] Back: No tenderness, no CVA tenderness. [] Extremities: No tenderness, no cyanosis, no clubbing, ROM intact, no edema. [] Neurologic: Alert and oriented, normal motor function, normal sensory function, no focal deficits noted. [] Psychologic: Flat affect. [] EKG EKG EKG shows a sinus rhythm at 87 bpm, normal axis, no ST elevation. Interpreted by me at 1114.[] Radiology/Procedures Radiology/Procedures PROCEDURE: PORTABLE CHEST 1V PORTABLE CHEST 1V History: Altered mental status Comparison: January 24, 2019 Findings: No consolidation or pleural effusion. Normal heart size. No pneumothorax. Right lower lung calcified granulomas. Unchanged leftward deviation of the upper trachea due to enlarged right thyroid. Impression: 1. No acute cardiopulmonary process. PROCEDURE: CT HEAD WO CONTRAST EXAM: CT Head without IV contrast CLINICAL HISTORY: Altered mental status COMPARISON: 01/24/2019 TECHNIQUE: Routine CT of the head without contrast. Soft tissues and bone windows were reviewed. PQRS compliance statement - One or more of the following individualized dose reduction techniques were utilized for this study: 1. Automated exposure control 2. Adjustment of the mA and/or kV according to patient size 3. Use of iterative reconstruction technique FINDINGS: There is no evidence of hemorrhage, mass or extra-axial fluid collection. Subcortical, periventricular and deep white matter hypoattenuation likely changes of chronic small vessel disease. There is a focal malacia and medial right parietal lobe with avila-white loss, unchanged to 01/24/2019. There is no mass effect or shift of the intracranial structures. There is prominence of the ventricles and sulci bilaterally consistent with generalized atrophy. The cerebellum and brainstem are unremarkable. The calvarium demonstrates no evidence of fracture or focal lesion. Diffuse opacification of the left frontal, maxillary sinus and left ethmoid air cells with bony changes, likely chronic sinusitis. Mastoid air cells are clear. There is normal aeration of the visualized paranasal sinuses and mastoid air cells. The visualized portions of the orbits are normal. IMPRESSION: 1. No evidence for acute intracranial process. 2. White matter changes likely chronic small vessel disease. 3. Old infarct right parietal region. 4. Chronic sinusitis is again seen. [] Course & Med Decision Making Course & Med Decision Making Pertinent Labs and Imaging studies reviewed. (See chart for details) Emergency department course: Patient arrived, was placed in bed, and tolerated exam well. She was transported to and from radiology with any complications. Laboratory samples were obtained after she returned from radiology. After the return of the laboratory testing, discussion was made with patient's family regarding findings and plan. Patient is full code, they requested that she stays here at [facility]. They were informed about the lack of "next steps" such as possibility of needing neurology or MRI. They requested that she stay here for several days if necessary and see if she improves prior to being transferred. Consultation was made with the hospitalist service for admission and he graciously accepted. Medical decision makin-year-old female with decreased mental status. There is no evidence of an acute stroke syndrome. No evidence of significant electrolyte abnormality. There is most likely dehydration given her elevated hematocrit compared with the traditional patient her age. There is no evidence of a urinary tract infection. This may all be due to gastroenteritis picture given that she was throwing up all night, as well as exhaustion from being awake all night. She is being given cautious IV fluids. She has not had any evidence of nausea or vomiting while in the emergency department area did[] Dragon Disclaimer Dragon Disclaimer This electronic medical record was generated, in whole or in part, using a voice recognition dictation system. Departure Departure: Impression: Primary Impression: Altered mental status Additional Impressions: Dehydration Gastroenteritis Disposition: ADMITTED INPATIENT Admitting Physician: Carlos Orellana Condition: IMPROVED Referrals: BLUE EVANS MD (PCP) Problem Qualifiers Primary Impression: Altered mental status Altered mental status type: somnolence Qualified Codes: R40.0 - Somnolence TOBIN URENA Mar 25, 2019 11:32
--- NOTE | 2019-03-25 11:56 | RAD ---
EXAM: CT Head without IV contrast CLINICAL HISTORY: Altered mental status COMPARISON: 01/24/2019 TECHNIQUE: Routine CT of the head without contrast. Soft tissues and bone windows were reviewed. PQRS compliance statement - One or more of the following individualized dose reduction techniques were utilized for this study: 1. Automated exposure control 2. Adjustment of the mA and/or kV according to patient size 3. Use of iterative reconstruction technique FINDINGS: There is no evidence of hemorrhage, mass or extra-axial fluid collection. Subcortical, periventricular and deep white matter hypoattenuation likely changes of chronic small vessel disease. There is a focal malacia and medial right parietal lobe with avila-white loss, unchanged to 01/24/2019. There is no mass effect or shift of the intracranial structures. There is prominence of the ventricles and sulci bilaterally consistent with generalized atrophy. The cerebellum and brainstem are unremarkable. The calvarium demonstrates no evidence of fracture or focal lesion. Diffuse opacification of the left frontal, maxillary sinus and left ethmoid air cells with bony changes, likely chronic sinusitis. Mastoid air cells are clear. There is normal aeration of the visualized paranasal sinuses and mastoid air cells. The visualized portions of the orbits are normal. IMPRESSION: 1. No evidence for acute intracranial process. 2. White matter changes likely chronic small vessel disease. 3. Old infarct right parietal region. 4. Chronic sinusitis is again seen. Electronically signed by: eHnrik Slade MD (03/25/2019 11:53 AM) [id number]
--- NOTE | 2019-03-25 11:59 | RAD ---
PORTABLE CHEST 1V History: Altered mental status Comparison: January 24, 2019 Findings: No consolidation or pleural effusion. Normal heart size. No pneumothorax. Right lower lung calcified granulomas. Unchanged leftward deviation of the upper trachea due to enlarged right thyroid. Impression: 1. No acute cardiopulmonary process. Electronically signed by: Pelon Perez DO (03/25/2019 11:56 AM) [id number]
[2019-03-25 12:11] LABS: CLARITY,URINE CLEAR; COLOR,URINE AMBER; GLUCOSE,URINE NEG (NEG)
[2019-03-25 12:12] LABS: BACTERIA,URINE 0 /HPF (0-FEW); NITRITE,URINE NEG (NEG); RBC,URINE OCC /HPF (0-2); UROBILINOGEN,URINE 0.2 mg/dL (0.2 mg/dL)
[2019-03-25 12:13] LABS: HYALINE CASTS, URINE OCC /HPF; SQUAMOUS EPITHELIAL CELL,UR MOD /LPF
[2019-03-25 12:46] LABS: BASO % 0 % (0-3); EOS % 0 % (0-3); HEMOGLOBIN 15.4 g/dL (12.0-15.5); LYMPH # 0.1 x10^3/uL (1.0-4.8); LYMPH % 2 % (24-48); MEAN CORPUSCULAR HEMOGLOBIN 29 pg (25-35); MEAN CORPUSCULAR HGB CONC 31 g/dL (31-37); MEAN CORPUSCULAR VOLUME 92 fL (79-100); MONO # 0.2 x10^3/uL (0.0-1.1); MONO % 4 % (0-9); NEUT # 5.1 x10^3uL (1.8-7.7); NEUT % 94 % (31-73); PLATELET COUNT 110 x10^3/uL (140-400); RED BLOOD COUNT 5.32 x10^6/uL (3.50-5.40); RED CELL DISTRIBUTION WIDTH 14.1 % (11.5-14.5); WHITE BLOOD COUNT 5.4 x10^3/uL (4.0-11.0)
[2019-03-25 12:55] LABS: ALBUMIN 3.6 g/dL (3.4-5.0); ALBUMIN/GLOBULIN RATIO 0.9 (1.0-1.7); CREATININE 0.9 mg/dL (0.6-1.0); MAGNESIUM 2.2 mg/dL (1.8-2.4); POTASSIUM 4.2 mmol/L (3.5-5.1); TOTAL BILIRUBIN 0.5 mg/dL (0.2-1.0); TOTAL PROTEIN 7.6 g/dL (6.4-8.2)
[2019-03-25] MEDS ORDERED: IV NORMAL SALINE 1,000ML 1,000 ML IV ONE (13:15)
[2019-03-25] MEDS ORDERED: IV NORMAL SALINE 1,000ML 1,000 ML IV SCH (13:35)
[2019-03-25] MEDS ORDERED: ONDANSETRON PF 4 MG/2 ML VIAL. IV PRN (13:45)
[2019-03-25] MEDS ORDERED: ACETAMINOPHEN 325 MG TABLET PO PRN (13:45)
[2019-03-25 13:47] LABS: BILIRUBIN,URINE NEG (NEG)
[2019-03-25 13:52] LABS: INFLUENZA A PATIENT NEGATIVE (NEGATIVE); INFLUENZA B PATIENT NEGATIVE (NEGATIVE)
[2019-03-25 14:58] VITALS: BP 160/79
[2019-03-25] MEDS ORDERED: MEMA1CAP2 PO (15:01)
[2019-03-25] MEDS ORDERED: LEVO25TA4 PO (15:01)
--- NOTE | 2019-03-25 15:18 | HP ---
ADMIT DATE: 03/25/2019 ATTENDING PHYSICIAN: Dr. Ceballos. CHIEF COMPLAINT: Weakness and confusion. HISTORY OF PRESENT ILLNESS: The patient is a pleasant 84-year-old -Niuean female, brought in by her slightly older sister who cares for her and 2 daughters. She has been sick for the last 2 days. She has had some nausea this morning, some loose stools. Clinically, she appears dehydrated. No fevers or chills. She is very obtunded. There was decline in her mentation. She has underlying Alzheimer's dementia for the last 2 years, cared for by her family. She has good days and bad days. When I came to see her, she had the standard workup done, CT of the head showed atrophy without any acute changes or bleeds. Her blood work showed fairly normal hemoglobin, hematocrit was slightly concentrated. The chemistry panel fairly unremarkable. She probably had a viral gastroenteritis with dehydration. Clinically, she is dry. She is admitted then for further treatment and evaluation. PAST MEDICAL HISTORY: Gleaned from the chart indicates she has essential hypertension, degenerative arthritis and underlying dementia. CURRENT MEDICATIONS: Her current medications include losartan, multivitamin as well as Aricept. The family tells me she has not been taking the Aricept lately. She has days where she is lucid, other day she is confused. SOCIAL HISTORY: She is a nonsmoker, but she does drink 3-4 cans of beer usually [employer], each evening. FAMILY HISTORY: Shows her mom at age 91 with complications of Alzheimer's dementia. Father at age 67 of unknown cause. She is . She lives with a sister who is slightly older. Her daughter manages her accounts and pays her bills as well as her checking ____. ALLERGIES: As noted. REVIEW OF SYSTEMS: Unobtainable. PHYSICAL EXAMINATION: GENERAL: When I saw her, this is a pleasant, but confused elderly female. INITIAL VITAL SIGNS: Showed blood pressure 131/70, pulse is 88 and regular. She was afebrile. HEENT: Head is without trauma. Orbits are sunken. Mucous membranes dry. She has poor dental repair with a few teeth remaining. NECK: Supple. No bruits. Venous pressure is not distended. LUNGS: Shallow respirations. No rales or rhonchi. CARDIOVASCULAR: Showed distant heart tones. No obvious gallops. Peripheral pulses are palpable and full. ABDOMEN: Soft, scaphoid, hypoactive bowel sounds. EXTREMITIES: Showed no cyanosis or edema. NEUROLOGIC: The patient is responsive, but is not aware of person, place or time at this time. LABORATORY DATA: As noted. ASSESSMENT: 1. An 84-year-old female with decreased mentation. 2. Clinical dehydration. 3. Probable gastroenteritis. 4. Underlying dementia, chronic and longstanding. 5. Essential hypertension. PLAN: 1. Admit to the inpatient unit. 2. Gentle IV hydration. 3. Diet as tolerated. 4. We shall hold her blood pressure meds. 5. Followup lab work in the morning. JAIRO CEBALLOS MD DR: DOLORES/yaz JOB#: [id number] / [id number] JORGE LUIS Madsen MD
[2019-03-25] MEDS: LOSARTAN 50 MG TABLET. PO SCH (17:27)
[2019-03-25] MEDS: IV NORMAL SALINE 1,000ML 1,000 ML IV SCH (17:27)
[2019-03-25 19:23] VITALS: BP 129/55
[2019-03-25 23:11] VITALS: BP 136/78
[2019-03-26] MEDS: IV NORMAL SALINE 1,000ML 1,000 ML IV SCH (01:17)
[2019-03-26 05:24] VITALS: BP 121/65
[2019-03-26 06:50] LABS: BASO % 0 % (0-3); EOS % 0 % (0-3); HEMATOCRIT 39.7 % (36.0-47.0); HEMOGLOBIN 12.5 g/dL (12.0-15.5); LYMPH # 0.4 x10^3/uL (1.0-4.8); LYMPH % 18 % (24-48); MEAN CORPUSCULAR HEMOGLOBIN 29 pg (25-35); MEAN CORPUSCULAR HGB CONC 32 g/dL (31-37); MEAN CORPUSCULAR VOLUME 91 fL (79-100); MONO # 0.3 x10^3/uL (0.0-1.1); MONO % 17 % (0-9); NEUT # 1.3 x10^3uL (1.8-7.7); NEUT % 64 % (31-73); PLATELET COUNT 96 x10^3/uL (140-400); RED BLOOD COUNT 4.37 x10^6/uL (3.50-5.40); RED CELL DISTRIBUTION WIDTH 13.9 % (11.5-14.5)
[2019-03-26 07:09] LABS: ALBUMIN 2.5 g/dL (3.4-5.0); ALBUMIN/GLOBULIN RATIO 0.9 (1.0-1.7); CALCIUM 7.6 mg/dL (8.5-10.1); CREATININE 0.7 mg/dL (0.6-1.0); GFR 96.2; TOTAL BILIRUBIN 0.4 mg/dL (0.2-1.0); TOTAL PROTEIN 5.4 g/dL (6.4-8.2)
[2019-03-26 07:14] LABS: POTASSIUM 3.7 mmol/L (3.5-5.1)
--- NOTE | 2019-03-26 07:29 | EKG ---
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
[2019-03-26 09:01] VITALS: BP 121/65
[2019-03-26] MEDS: LOSARTAN 50 MG TABLET. PO SCH (09:01)
[2019-03-26 13:51] LABS: % BANDS 6 % (0-9); % LYMPHS 16 % (24-48); % MONOS 20 % (0-10); % SEGS 58 % (35-66)
[2019-03-26 13:52] LABS: PLT ESTIMATE DECREASED (ADEQUATE)
--- NOTE | 2019-03-26 15:15 | DS ---
DATE OF DISCHARGE: 03/26/2019 ATTENDING PHYSICIAN: Dr. Ceballos. FINAL DISCHARGE DIAGNOSES: 1. Confusion with altered mentation, resolved. 2. Underlying dementia. 3. Self-limiting gastroenteritis. 4. Dehydration, rehydrated. 5. Essential hypertension. 6. Hypothyroidism, on replacement. HISTORY AND PHYSICAL: This is a very pleasant 84-year-old -[place] female. She has had a 2-day history of nausea, vomiting, some diarrhea. She appears clinically dehydrated. She has underlying dementia, cared for by her family at home. She was admitted for further treatment and evaluation. PHYSICAL EXAMINATION: When I saw her, she looked clinically dry. LABORATORY STUDIES: The obligatory CT of the head demonstrated no acute strokes, atrophy was noted. Her chemistry panel showed a hemoglobin of 15.4 g/dL in a hemoconcentrated state; repeated, it was down to 12.5 mg/dL. White count on admission was 5400. Chemistry panel was unremarkable. Creatinine is 0.7 mg percent. Sodium 137, potassium 4.2 mEq per liter. Troponin was nonischemic. COURSE IN THE HOSPITAL: The patient was admitted. She was started on gentle IV hydration and treated for nausea. Home meds were eventually continued. Diet was advanced. She did remarkably well. By the next hospital day, she was up and awake and back to her baseline self. Family was at the bedside. She ate solids for breakfast, no further nausea, vomiting or diarrhea. Vital signs were quite stable. She was afebrile, blood pressure 121/65, pulse is 80 and regular. Her lungs were clear and abdominal exam was soft and nontender. She had adequate saturation 95% on room air. Therefore, she is discharged home with no limitations of her diet. She can eat whatever she likes. She will continue her scheduled dose of Cozaar as well as Synthroid. She has not been taking her Aricept and therefore, I did not refill it. She will follow up with her PCP the scheduled time. The patient was then discharged from our hospital in stable condition with explicit instructions and followup care. JAIRO CEBALLOS MD DR: DOLORES/yaz JOB#: [id number] / [id number]
== END 2019-03-26 10:16 | disposition home or self-care (01) | DRG 391 ==
LOC: ER 11:01 → 1 SOUTH 13:30
PROVIDERS: ADMIT Hospitalist; ATTEND Hospitalist
DX: K52.9 Noninfective gastroenteritis and colitis, unspecified (principal); G93.41 Metabolic encephalopathy; I10 Essential (primary) hypertension; F02.80 Dementia in other diseases classified elsewhere, unspecified severity, without behavioral disturbance, psychotic disturbance, mood disturbance, and anxiety; E03.9 Hypothyroidism, unspecified; E86.0 Dehydration; G30.9 Alzheimer's disease, unspecified; M19.90 Unspecified osteoarthritis, unspecified site; Z87.891 Personal history of nicotine dependence; Z82.0 Family history of epilepsy and other diseases of the nervous system
CPT/HCPCS: 36415; 70450; 71045; 80053; 81001; 82140; 82550; 83605; 83735; 83880; 84443; 84484; 85007; 85025; 85610; 85730; 87040; 87804; 93005; 96360; 96361; J7040; P9612; 97110; 97116; 99285-25; J7030

== ENCOUNTER 2020-12-15 20:13 | Emergency (ER) | payer MEDICAID, MEDICARE, OTHER ==
[~2020-12-15] VITALS: Ht 165.1 cm; Wt 45.0 kg
[~2020-12-15 20:13] MED LIST changes: +LEVO25TA4 PO; +MEMA1CAP2 PO
--- NOTE | 2020-12-15 20:28 | PHYS DOC ---
Past History Past Medical History: Dementia, Hypertension, Hypothyroid Additional Past Medical Histor: Possible dementia (ODALYS VASQUEZ APRN) Past Surgical History: No Surgical History Additional Past Surgical Histo: GI (ODALYS VASQUEZ APRN) Smoking: Quit Greater Than 1 Year Alcohol Use: None Drug Use: None (ODALYS VASQUEZ APRN) General Adult EDM: Chief Complaint: ALTERED MENTAL STATUS HPI: HPI: Patient is an 85-year-old female who presents to the ER via EMS for increasing c onfusion for the last 3 days per family. EMS reports that patient was noted to be 85% on room air and was placed on oxygen. In the ER patient is 96% on room air and nonlabored. Patient is not able to answer any questions. She withdraws to painful stimuli but is not oriented. Patient's vital signs are stable. She is afebrile. Patient has a history of dementia. (ODALYS VASQUEZ APRN) HPI: Patient is a 89-year-old female with past medical history significant for dementia, hypertension and hyperlipidemia who presents with daughter for chief complaint of confusion. Daughter states that she recently arrived for visit, 2 days ago and when she arrived noticed she seemed really sleepy, and had some confusion. Per other family members she had been just like that for about a day so she has been more confused than usual given her dementia. Denies any known traumas/falls, fevers, complaints of pain, nausea, vomiting, diarrhea, illnesses or known ill contacts. States before 3 days ago she was eating and drinking normally for her. States she was able to walk on her own. (JONNATHAN TODD MD) Review of Systems: Review of Systems: 14 body systems of the review of systems have been reviewed. See HPI for pertinent positive and negative responses, otherwise all other systems are negative, nonpertinent or noncontributory (ODALYS VASQUEZ APRN) Review of Systems: Review of systems provided by family member, noted in HPI (JONNATHAN TODD MD) Allergies: Allergies: Allergies Coded Allergies Type Severity Reaction Last Updated Verified No Known Drug Allergies 12/15/20 No (ODALYS VASQUEZ APRN) Physical Exam: PE: Constitutional: Well developed, well nourished, no acute distress, non-toxic appearance. [] HENT: Normocephalic, atraumatic, bilateral external ears normal, oropharynx moist, no oral exudates, nose normal. [] Eyes: PERRLA, cataracts bilaterally, 3mm pupils bilaterally, bilateral eye tearing, EOMI, conjunctiva normal Neck: Normal range of motion, no stridor Cardiovascular:Heart rate regular rhythm, no murmur [] Lungs & Thorax: Bilateral breath sounds clear to auscultation, coarse sounding cough [] Abdomen: Bowel sounds normal, soft, no tenderness, no masses, no pulsatile masses. [] Skin: Warm, dry, no erythema, no rash. [] Back: Normal range of motion Extremities: No tenderness, no cyanosis, no clubbing, ROM intact, no edema. [] Neurologic: Alert, normal motor function, no focal deficits noted, GCS 6. Psychologic: Affect normal, judgement normal, mood normal. [] (ODALYS VASQUEZ APRN) PE: Constitutional: Well developed, well nourished, non-toxic appearance. [] HENT: Normocephalic, atraumatic, bilateral external ears normal, oropharynx dry, no oral exudates, nose normal. [] Eyes: PERRLA, EOMI, conjunctiva normal, no discharge. [] Neck: Normal range of motion, no tenderness, supple, no stridor. [] Cardiovascular:Heart rate regular rhythm, no murmur [] Lungs & Thorax: Bilateral breath sounds clear to auscultation [] Abdomen:soft, no tenderness, no masses, no pulsatile masses. [] Skin: Warm, dry, no erythema, no rash. [] Back: No tenderness, no CVA tenderness. [] Extremities: No tenderness, no cyanosis, no clubbing, ROM intact, no edema. [] Neurologic: GCS of 11 (E2, V4, M5), grossly normal motor function and moves all extremities when stimulated, grossly normal sensory function to touch. Patient lethargic, but arousable to voice/stimulation and able to give name and birthdate but then falls back to sleep. (JONNATHAN TODD MD) Current Patient Data: Labs: Laboratory Tests Test 12/15/20 20:18 12/15/20 20:23 12/15/20 20:24 White Blood Count 12.6 x10^3/uL Red Blood Count 4.07 x10^6/uL Hemoglobin 11.2 g/dL Hematocrit 35.0 % Mean Corpuscular Volume 86 fL Mean Corpuscular Hemoglobin 27 pg Mean Corpuscular Hemoglobin Concent 32 g/dL Red Cell Distribution Width 14.0 % Platelet Count 263 x10^3/uL Neutrophils (%) (Auto) 86 % Lymphocytes (%) (Auto) 7 % Monocytes (%) (Auto) 7 % Eosinophils (%) (Auto) 0 % Basophils (%) (Auto) 0 % Neutrophils # (Auto) 10.9 x10^3uL Lymphocytes # (Auto) 0.8 x10^3/uL Monocytes # (Auto) 0.9 x10^3/uL Eosinophils # (Auto) 0.0 x10^3/uL Basophils # (Auto) 0.0 x10^3/uL Urine Collection Type U cath Urine Color Yellow Urine Clarity Clear Urine pH 6.5 Urine Specific [place] 1.020 Urine Protein Trace Urine Glucose (UA) Neg mg/dL Urine Ketones (Stick) Neg mg/dL Urine Blood Neg Urine Nitrite Neg Urine Bilirubin Small Urine Urobilinogen Dipstick 4.0 mg/dL Urine Leukocyte Esterase Neg Urine RBC Occ /HPF Urine WBC 1-4 /HPF Urine Squamous Epithelial Cells Few /LPF Urine Bacteria 0 /HPF Urine Mucus Mod /LPF Lactic Acid Level 1.4 mmol/L SARS-CoV-2 Antigen (Rapid) Negative Current Medications Medications (Trade) Dose Ordered Sig/Silvano Route PRN Reason Start Time Stop Time Status Last Admin Dose Admin Lactated Ringer's 900 ml @ 900 mls/hr 1X ONCE IV 12/15/20 21:45 12/15/20 22:44 12/15/20 21:38 Vital Signs: Vital Signs Date Time Temp Pulse Resp B/P (MAP) Pulse Ox O2 Delivery O2 Flow Rate FiO2 12/15/20 20:14 98.2 94 20 95/50 94 Room Air (ODALYS VASQUEZ MOLDED CANDLES WICKER) EKG: EKG: EKG performed by ER staff at 2031 shows sinus rhythm, no STEMI read by Dr. Urvashi melton [] (ODALYS VASQUEZ MOLDED CANDLES WICKER) Radiology/Procedures: Radiology/Procedures: PROCEDURE: CT HEAD WO CONTRAST Exam Date: 12/15/2020 8:[address] HEAD/BRAIN WO Indication: Reason: ams / Spl. Instructions: / History: . TECHNIQUE: Head CT was performed without intravenous contrast. One or more of the following dose reduction techniques were utilized: *Automated exposure control (AEC) *Adjustment of mA and/or kV according to patient size *Use of iterative reconstruction technique *CT scan done according to ALARA, or MOMO/IMAGE GENTLY FINDINGS: Encephalomalacia in the right occipital lobe is consistent with remote infarct. The ventricles and sulci are prominent consistent with cerebral volume loss. Patchy ill-defined low attenuation areas in the subcortical and periventricular white matter bilaterally are consistent with microvascular disease. There is no evidence of acute intracranial hemorrhage, extra-axial collection, mass effect, midline shift, or acute territorial infarct. No lesion of the skull base or the calvarium is seen. The visualized mastoid air cells and orbits are normal in appearance. There is partial opacification of the paranasal sinuses. IMPRESSION: No evidence for acute intracranial abnormality. Remote right occipital infarct noted. Volume loss and microvascular disease. Electronically signed by: Naty Thomas MD (12/15/2020 9:28 PM) [facility] DICTATED AND SIGNED BY: NATY THOMAS MD DATE: 12/15/202124 CC: JONNATHAN TODD MD; ODALYS VASQUEZ APRN; BLUE EVANS MD ~MTH0 0 []PROCEDURE: PORTABLE CHEST 1V Exam Date: 12/15/2020 8:55 PM XR CHEST 1V Indication: Reason: ams, cough / Spl. Instructions: / History: . FINDINGS/ IMPRESSION: Calcified granulomas are noted in the lungs. The cardiac silhouette and pulmonary vasculature are within normal limits. There is no focal consolidation, pleural effusion or pneumothorax. The visualized osseous structures are intact. Electronically signed by: Naty Thomas MD (12/15/2020 9:35 PM) [facility] DI[facility]ATED AND SIGNED BY: NATY THOMAS MD DATE: 12/15/202127 CC: JONNATHAN TODD MD; ODALYS VASQUEZ APRN; BLUE EVANS MD ~MTH0 0 (ODALYS VASQUEZ APRN) Heart Score: C/O Chest Pain: No Risk Factors: Risk Factors: DM, Current or recent (<one month) smoker, HTN, HLP, family history of CAD, obesity. Risk Scores: Score 0 - 3: 2.5% MACE over next 6 weeks - Discharge Home Score 4 - 6: 20.3% MACE over next 6 weeks - Admit for Clinical Observation Score 7 - 10: 72.7% MACE over next 6 weeks - Early Invasive Strategies (ODALYS VASQUEZ APRN) C/O Chest Pain: N/A (JONNATHAN TODD MD) Course & Med Decision Making: Course & Med Decision Making Pertinent Labs and Imaging studies reviewed. (See chart for details) [] Patient is an 85-year-old female being seen in the ER for altered mental status x3 days. Work-up in the ER consisted of blood work, urinalysis, CT scan of head/chest abdomen and pelvis, chest x-ray. Urinalysis is negative. Covid test negative. CT scan of head shows remote right occipital infarct. Chest x- ray negative for any acute findings. Mild leukocytosis noted. CMP pending. CT angio pending. CT chest/abd/pelvis pending. I discussed patients case with supervising physician and he will assume care at this time. Care transferred at this time. 2200. (ODALYS VASQUEZ APRN) Course & Med Decision Making Patient care handed off to me at checkout. Patient is an 85-year-old female who presents from home with family for 3 days outside of her norm even given dementia. Family states that she does have dementia and occasionally gets confused but this seems worse and different and seems much sleepier than usual. States that they first noticed this about 3 days ago when she was sleeping more than usual. Family denies any recent travel, traumas, known ill contacts, fevers. Family denies any history of her complaining about pain, shortness of breath, nausea, vomiting, diarrhea. States she only takes a couple of medicines for blood pressure and cholesterol and has no access to other medications. Patient with a GCS of 11, with relatively unremarkable vital signs outside of a breathing rate around 20 and oxygen saturations around 93%. EKG noted with no STEMI. Troponin normal. Laboratory analysis notable for mild neutrophilic leukocytosis. Urinalysis not concerning for urinary tract infection. Chest x- ray with calcified granulomas noted in the lungs but no obvious focal consolidation, pleural effusion or pneumothorax. Head CT. No evidence of acute intercranial abnormality and possible remote right occipital infarct noted. CTA of the head and neck obtained, but IV access malfunctioned and it appears contrast extravasated with less than optimal pictures obtained. Patient continued on IV fluid resuscitation and started on broad-spectrum antibiotics given the fact that sepsis is on the differential diagnosis. Discussed all findings with daughter and recommended transfer admission to [place] for continued evaluation and treatment of her lethargy including probable need for MRI to evaluate for stroke and continued IV antibiotics for possible sepsis/secondary to pneumonia seen on CT. Daughter forrest, jeanne machadoed understanding and agreed with plan of transfer and admission. (JONNATHAN TODD MD) Dragon Disclaimer: Dragon Disclaimer: This electronic medical record was generated, in whole or in part, using a voice recognition dictation system. (ODALYS VASQUEZ APRN) Departure Departure: Impression: Primary Impression: Altered mental status Additional Impressions: Abnormal CT of the head Abnormal chest x-ray Neutrophilic leukocytosis Pneumonia Disposition: 03 [facility] Admitting Physician: Other (JONNATHAN TODD MD) Condition: STABLE Referrals: BLUE EVANS MD (PCP) ODALYS VASQUEZ APRN Dec 15, 2020 20:28 JONNATHAN TODD MD Dec 16, 2020 01:52
[2020-12-15] MEDS ORDERED: LEVO25TA4 PO (20:36)
[2020-12-15] MEDS ORDERED: MEMA1CAP2 PO (20:38)
[2020-12-15] MEDS ORDERED: TELM40TA PO (20:38)
--- NOTE | 2020-12-15 20:47 | EKG ---
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
[2020-12-15 20:59] LABS: BASO % 0 % (0-3); EOS % 0 % (0-3); HEMOGLOBIN 11.2 g/dL (12.0-15.5); LYMPH # 0.8 x10^3/uL (1.0-4.8); LYMPH % 7 % (24-48); MEAN CORPUSCULAR HEMOGLOBIN 27 pg (25-35); MEAN CORPUSCULAR HGB CONC 32 g/dL (31-37); MEAN CORPUSCULAR VOLUME 86 fL (79-100); MONO # 0.9 x10^3/uL (0.0-1.1); MONO % 7 % (0-9); NEUT # 10.9 x10^3uL (1.8-7.7); NEUT % 86 % (31-73); PLATELET COUNT 263 x10^3/uL (140-400); RED BLOOD COUNT 4.07 x10^6/uL (3.50-5.40); WHITE BLOOD COUNT 12.6 x10^3/uL (4.0-11.0)
[2020-12-15 21:21] LABS: BILIRUBIN,URINE SMALL (NEG); CLARITY,URINE CLEAR; COLOR,URINE YELLOW; GLUCOSE,URINE NEG (NEG); NITRITE,URINE NEG (NEG)
[2020-12-15 21:22] LABS: BACTERIA,URINE 0 /HPF (0-FEW); RBC,URINE OCC /HPF (0-2); SQUAMOUS EPITHELIAL CELL,UR FEW /LPF
--- NOTE | 2020-12-15 21:31 | RAD ---
Exam Date: 12/15/2020 8:[address] HEAD/BRAIN WO Indication: Reason: ams / Spl. Instructions: / History: . TECHNIQUE: Head CT was performed without intravenous contrast. One or more of the following dose re duction techniques were utilized: *Automated exposure control (AEC) *Adjustment of mA and/or kV according to patient size *Use of iterative reconstruction technique *CT scan done according to ALARA, or ALARA/IMAGE GENTLY FINDINGS: Encephalomalacia in the right occipital lobe is consistent with remote infarct. The ventricles and sulci are prominent consistent with cerebral volume loss. Patchy ill-defined low attenuation areas in the subcortical and periventricular white matter bilaterally are consistent with microvascular disease. There is no evidence of acute intracranial hemorrhage, extra-axial collecti on, mass effect, midline shift, or acute territorial infarct. No lesion of the skull base or the calv arium is seen. The visualized mastoid air cells and orbits are normal in appearance. There is partia l opacification of the paranasal sinuses. IMPRESSION: No evidence for acute intracranial abnormality. Remote right occipital infarct noted. Volume loss and microvascular disease. Electronically signed by: Dennis Thomas MD (12/15/2020 9:28 PM) [facility]
--- NOTE | 2020-12-15 21:37 | RAD ---
Exam Date: 12/15/2020 8:55 PM XR CHEST 1V Indication: Reason: ams, cough / Spl. Instructions: / History: . FINDINGS/ IMPRESSION: Calcified granulomas are noted in the lungs. The cardiac silhouette and pulmonary vasculature are within normal limits. There is no focal consolidation, pleural effusion or pneumothorax. The visualized osseous structures are intact. Electronically signed by: Dennis Thomas MD (12/15/2020 9:35 PM) [facility]
[2020-12-15] MEDS ORDERED: IV RINGERS SOLUTION,LACTATED 900 ML IV ONE (21:45)
[2020-12-15] MEDS ORDERED: CONTRAST GIVEN. MC PRN (22:00)
[2020-12-15] MEDS ORDERED: IOHEXOL 350 MG/ML 100 ML VIAL. IV ONE (22:00)
[2020-12-15 23:35] LABS: CREATININE 1.1 mg/dL (0.6-1.0); POTASSIUM 4.8 mmol/L (3.5-5.1)
[2020-12-15 23:41] LABS: ALBUMIN 2.5 g/dL (3.4-5.0); ALBUMIN/GLOBULIN RATIO 0.6 (1.0-1.7); TOTAL BILIRUBIN 0.4 mg/dL (0.2-1.0)
[2020-12-16] MEDS ORDERED: IV RINGERS SOLUTION,LACTATED 900 ML IV ONE (01:30)
--- NOTE | 2020-12-16 02:11 | RAD ---
CT abdomen and pelvis without contrast: Reason for examination: Altered mental status and cough. Helical images were obtained through the abdomen and pelvis with no intravenous or oral contrast admi nistered. Reconstruction was performed in sagittal and coronal planes. Exposure: One or more of the following individualized dose reduction techniques were utilized for thi s examination: 1. Automated exposure control 2. Adjustment of the mA and/or kV according to patient size 3. Use of iterative reconstruction technique. There are bibasilar infiltrates with no pleural effusions. The heart size is normal with no pericardi al effusion. No focal abnormality seen at the liver, spleen, adrenal glands, pancreas or gallbladder. The abdomina l aorta shows arteriosclerotic vascular calcification without aneurysmal dilatation. No abnormality s een at the inferior vena cava. No abnormality seen at the appendix. The colon shows no diverticulosis , diverticulitis or colitis. The small intestinal tract shows no abnormal dilatation, wall thickening or obstruction. No abnormality seen at the stomach or duodenum. The kidneys show nonobstructing calc rob in the left kidney with no hydronephrosis or obstructive uropathy evident. Note is made of a prom inent left renal pelvis. The bladder is not distended and there does appear to be some bladder wall thickening with a 1.4 x 1 cm hypodense area in the left bladder wall and bladder mass cannot be excluded. No abnormality seen a t the vaginal cuff. No free fluid or free air is seen in the abdomen or pelvis. IMPRESSION: Bibasal infiltrates with no pleural effusion. Nonobstructing calculi in the left kidney. Bladder wall thickening with a 1.4 x 1 cm hypodense area in the left bladder wall in the bladder mass cannot be excluded. Electronically signed by: Siri Wilson MD (12/16/2020 2:09 AM) [facility]
[2020-12-16 03:54] VITALS: BP 101/52
--- NOTE | 2020-12-16 07:03 | RAD ---
EXAM: CTA HEAD AND NECK W/WO CONTRAST DATE: 12/15/2020 11:37 PM INDICATION: ams TECHNIQUE: CTA angiogram of the head and neck was obtained after IV bolus administration of 75 cc of Omnipaque 350. The images were sent to workstation and multiplanar reconstructions were obtained. Mu ltiplanar reconstruction images to include MIP and 3-D reconstruction images are submitted. One or more of the following dose reduction techniques were utilized: Automated exposure control (AEC ), Adjustment of mA and/or kV according to patient size, Use of iterative reconstruction technique ramirez ch as ASiR, CT scan done according to ALARA and image gently/image wisely COMPARISON: Noncontrast CT head done earlier the same day. FINDINGS: CTA Head: Nondiagnostic evaluation of cerebral arterial vasculature. CTA Neck: Nondiagnostic evaluation of cervical arterial vasculature. No cervical lymphadenopathy. Right thyroid 1.7 cm nodule, better evaluated on prior thyroid ultrasoun d. The parotid and submandibular glands are normal. The visualized aerodigestive tract is unremarkabl e. Moderate multilevel degenerative disc height loss. Multilevel disc protrusions and marginal osteophyt es results in multilevel spinal canal stenosis. Multilevel uncovertebral and facet arthrosis with mul tilevel neural foraminal narrowing. The visualized portions of the lungs are clear. IMPRESSION: Nondiagnostic evaluation of vasculature due to suboptimal contrast opacification. If clinical concern persists, repeat examination can be obtained. PQRS Compliance Statement - Stenosis calculations for CT, MR and conventional angiography are based u faith measurement of the distal ICA diameter in accordance with the NASCET methodology. Electronically signed by: Shyam Smith MD (12/16/2020 7:01 AM) [id number]
== END 2020-12-16 04:16 ==
LOC: ER 20:13
DX: J18.9 Pneumonia, unspecified organism (principal); D72.829 Elevated white blood cell count, unspecified; R41.82 Altered mental status, unspecified; R93.0 Abnormal findings on diagnostic imaging of skull and head, not elsewhere classified; R93.1 Abnormal findings on diagnostic imaging of heart and coronary circulation; F03.90 Unspecified dementia, unspecified severity, without behavioral disturbance, psychotic disturbance, mood disturbance, and anxiety; I10 Essential (primary) hypertension; E03.9 Hypothyroidism, unspecified; Z20.822 Contact with and (suspected) exposure to COVID-19; Z87.891 Personal history of nicotine dependence
CPT/HCPCS: 36415; 70450; 70496; 70498; 71045; 74176; 80053; 81001; 83605; 83735; 84443; 84484; 85025; 87426; 93005; 96361; 96365; 99285; J1956; J7120; P9612; Q9967; U0003

== ENCOUNTER 2021-04-08 11:25 | Emergency (ER) | payer OTHER ==
[~2021-04-08] VITALS: Ht 165.1 cm; Wt 45.0 kg
[~2021-04-08 11:25] MED LIST changes: +DONE-49 PO; -DONE10TA14 PO; +TELM40TA PO
[2021-04-08 11:29] VITALS: BP 125/63
[2021-04-08] MEDS ORDERED: TETRACAINE 0.5% OPHTH SOLUTION 4ML BOTTLE. ONE (12:12)
[2021-04-08] MEDS ORDERED: FLUORESCEIN 1MG EYE STRIP. OU ONE (12:15)
[2021-04-08] MEDS ORDERED: IOHEXOL 300 MG/ML 75 ML VIAL. IV ONE (12:30)
[2021-04-08] MEDS ORDERED: CONTRAST GIVEN. MC PRN (12:45)
[2021-04-08 12:54] LABS: BASO % 0 % (0-3); EOS % 0 % (0-3); HEMATOCRIT 38.3 % (36.0-47.0); HEMOGLOBIN 12.2 g/dL (12.0-15.5); LYMPH % 25 % (24-48); MEAN CORPUSCULAR HEMOGLOBIN 27 pg (25-35); MEAN CORPUSCULAR HGB CONC 32 g/dL (31-37); MEAN CORPUSCULAR VOLUME 86 fL (79-100); MONO # 0.7 x10^3/uL (0.0-1.1); MONO % 17 % (0-9); NEUT # 2.3 x10^3uL (1.8-7.7); NEUT % 58 % (31-73); PLATELET COUNT 123 x10^3/uL (140-400); RED BLOOD COUNT 4.45 x10^6/uL (3.50-5.40); RED CELL DISTRIBUTION WIDTH 15.2 % (11.5-14.5)
[2021-04-08 13:03] LABS: CALCIUM 8.9 mg/dL (8.5-10.1); CREATININE 0.8 mg/dL (0.6-1.0); GFR 82.1; POTASSIUM 4.2 mmol/L (3.5-5.1)
[2021-04-08 13:18] LABS: ALBUMIN 3.2 g/dL (3.4-5.0); ALBUMIN/GLOBULIN RATIO 0.8 (1.0-1.7); TOTAL BILIRUBIN 0.3 mg/dL (0.2-1.0); TOTAL PROTEIN 7.1 g/dL (6.4-8.2)
--- NOTE | 2021-04-08 14:14 | RAD ---
CT ORBITS/SELLA WITHOUT CONTRAST History: Left-sided stenosis, rule out infection. Comparison: CTA head and neck 12/15/20 Technique: CT of the maxillofacial bones without contrast. Findings: There is left supraorbital and preseptal orbital soft tissue swelling. There is mild thickening of th e left extraocular muscles compared to the right. No inflammatory stranding of the intraconal fat is identified. No subperiosteal abscess is seen. Postsurgical changes the lenses. Chronic left maxillary sinusitis with maxillary sinus opacification, coarsened appearance of the maxi llary bones, expansile, and contour of the medial left maxillary wall. Suspect mucocele. The left sph enoid sinus, ethmoid and frontal sinus are partially opacified with mucoperiosteal thickening. The ri ght frontal, maxillary, sphenoid and ethmoid sinuses are patent. There is opacification of the left n aliyah cavity and nostril which appears occluded by soft tissue mass or polyposis. 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 Sclerosis of the left frontal bone surrounding the frontal sinus lik lianet related to chronic sinusitis. Visualized brain is unremarkable. Impression: 1. Asymmetric thickening of the left extraocular muscles concerning for fracture or ossicular muscle edema, a sign of left orbital cellulitis. Otherwise no stranding of the intraconal fat or subperiost eal abscess identified. 2. Left periorbital soft tissue stranding suspicious for periorbital cellulitis. 3. Chronic left sinusitis with opacification of the maxillary sinus and mucoperiosteal thickening of the remainder of the left paranasal sinuses and opacification of the left nasal cavity and nostril. 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 ------ Exposure: One or more of the following individualized dose reduction techniques were utilized for thi s examination: 1. Automated exposure control 2. Adjustment of the mA and/or kV according to patient size 3. Use of iterative reconstruction technique. Electronically signed by: Olivier High MD (04/08/2021 2:12 PM) [facility]
--- NOTE | 2021-04-08 14:21 | PHYS DOC ---
Past History Past Medical History: Dementia, Hypertension, Hypothyroid Additional Past Medical Histor: Possible dementia Past Surgical History: No Surgical History Additional Past Surgical Histo: GI Smoking: Quit Greater Than 1 Year Alcohol Use: None Drug Use: None General Adult EDM: Chief Complaint: EYE PROBLEMS HPI: HPI: 86-year-old female presents the ED with her biological daughter, (patient consents to his/her/their knowledge and involvement in pts' medical care) who is visiting patient from out of town, concern for swelling to left upper eyelid with multiple areas of skin loss over left upper face and nose. Patient reports that she scratches her face alot. When opening patient's eyes she has no blurry vision in the left eye. Patient is bedbound and is cared for by home health aide. Review of Systems: Review of Systems: Constitutional: Denies fever or chills Eyes: Denies change in visual acuity or eye discharge HENT: Denies nasal congestion or sore throat Respiratory: Denies cough or shortness of breath Cardiovascular: Denies chest pain or edema GI: Denies abdominal pain, nausea, vomiting, bloody stools or diarrhea : Denies dysuria or incontinence Musculoskeletal: Denies back pain or joint pain Integument: Denies desquamation or bleeding Neurologic: Denies headache, focal weakness or sensory changes Endocrine: Denies polyuria or polydipsia Lymphatic: Denies swollen glands Psychiatric: Denies depression or anxiety Current Medications: Current Meds: Current Medications Medications (Trade) Dose Ordered Sig/Silvano Start Time Stop Time Status Last Admin Dose Admin Fluorescein Sodium (Ful-Paty 1mg) 1 strip 1X ONCE 04/08/21 12:15 04/08/21 12:16 DC 04/08/21 12:15 1 STRIP Info (Do NOT chart on this entry -- for MONITORING) 1 each PRN DAILY PRN 04/08/21 12:45 04/10/21 12:44 Iohexol (Omnipaque 300 Mg/ml) 75 ml 1X ONCE 04/08/21 12:30 04/08/21 12:34 DC Tetracaine HCl (Tetracaine) 40 drop STK-MED ONCE 04/08/21 12:12 04/08/21 12:12 DC Allergies: Allergies: Allergies Coded Allergies Type Severity Reaction Last Updated Verified No Known Drug Allergies 12/15/20 No Physical Exam: PE: Constitutional: Well developed, well nourished, no acute distress, non-toxic appearance. HENT: Normocephalic, atraumatic, normal tympanic membranes bilaterally-no vesicular lesions Eyes: Nipples equal and reactive, EOMI, conjunctiva edematous in left eye/chemosis no discharge, no flouresciene uptake in the left eye with Almeida lamp exam, swollen left upper eyelid-requires lifting to visualize orbit, no Chandana sign, Neck: Normal range of motion, supple, Cardiovascular: S1/2 present, regular rhythm Lungs & Thorax: Speaking in full sentences, bilateral equal chest rise, no tachypnea or increased work of breathing Abdomen: soft, no tenderness, Skin: Warm, dry, multiple areas of skin erosion over patient's eyelid, forehead and no-her head with some fluid-filled lesions Back: No tenderness, very early stage I ulcer Extremities: No tenderness, no cyanosis, Neurologic: Alert and oriented X 3, normal motor function, normal sensory function, no focal deficits noted. [] Psychologic: Affect normal, judgement normal, mood normal. [] Current Patient Data: Labs: Laboratory Tests Test 04/08/21 12:37 White Blood Count 4.0 x10^3/uL (4.0-11.0) Red Blood Count 4.45 x10^6/uL (3.50-5.40) Hemoglobin 12.2 g/dL (12.0-15.5) Hematocrit 38.3 % (36.0-47.0) Mean Corpuscular Volume 86 fL (79-100) Mean Corpuscular Hemoglobin 27 pg (25-35) Mean Corpuscular Hemoglobin Concent 32 g/dL (31-37) Red Cell Distribution Width 15.2 % (11.5-14.5) H Platelet Count 123 x10^3/uL (140-400) L Neutrophils (%) (Auto) 58 % (31-73) Lymphocytes (%) (Auto) 25 % (24-48) Monocytes (%) (Auto) 17 % (0-9) H Eosinophils (%) (Auto) 0 % (0-3) Basophils (%) (Auto) 0 % (0-3) Neutrophils # (Auto) 2.3 x10^3uL (1.8-7.7) Lymphocytes # (Auto) 1.0 x10^3/uL (1.0-4.8) Monocytes # (Auto) 0.7 x10^3/uL (0.0-1.1) Eosinophils # (Auto) 0.0 x10^3/uL (0.0-0.7) Basophils # (Auto) 0.0 x10^3/uL (0.0-0.2) Sodium Level 142 mmol/L (136-145) Potassium Level 4.2 mmol/L (3.5-5.1) Chloride Level 104 mmol/L (98-107) Carbon Dioxide Level 27 mmol/L (21-32) Anion Gap 11 (6-14) Blood Urea Nitrogen 21 mg/dL (7-20) H Creatinine 0.8 mg/dL (0.6-1.0) Estimated GFR (Cockcroft-Gault) 82.1 BUN/Creatinine Ratio 26 (6-20) H Glucose Level 144 mg/dL (70-99) H Calcium Level 8.9 mg/dL (8.5-10.1) Total Bilirubin 0.3 mg/dL (0.2-1.0) Aspartate Amino Transferase (AST) 15 U/L (15-37) Alanine Aminotransferase (ALT) 19 U/L (14-59) Alkaline Phosphatase 104 U/L (46-116) Total Protein 7.1 g/dL (6.4-8.2) Albumin 3.2 g/dL (3.4-5.0) L Albumin/Globulin Ratio 0.8 (1.0-1.7) L Vital Signs: Vital Signs Date Time Temp Pulse Resp B/P (MAP) Pulse Ox O2 Delivery O2 Flow Rate FiO2 04/08/21 11:29 101 14 125/63 (83) 98 Room Air EKG: EKG: [] Radiology/Procedures: Radiology/Procedures: []IMAGING REPORT Signed PATIENT: FELIPE GONZALES LACCOUNT: [id number] : 1935 LOCATION: ER AGE: 86 SEX: F EXAM STATUS: REG ER ORD. PHYSICIAN: LORI RAMSAY DO REASON: left eye chemosis, r/o infection - NO IV ACCESS PROCEDURE: CT ORBITS WO CONTRAST CT ORBITS/SELLA WITHOUT CONTRAST History: Left-sided stenosis, rule out infection. Comparison: CTA head and neck 12/15/20 Technique: CT of the maxillofacial bones without contrast. Findings: There is left supraorbital and preseptal orbital soft tissue swelling. There is mild thickening of the left extraocular muscles compared to the right. No inflammatory stranding of the intraconal fat is identified. No subperiosteal abs cess is seen. Postsurgical changes the lenses. Chronic left maxillary sinusitis with maxillary sinus opacification, coarsened a ppearance of the maxillary bones, expansile, and contour of the medial left maxillary wall. Suspect mucocele. The left sphenoid sinus, ethmoid and frontal sinus are partially opacified with mucoperiosteal thickening. The right frontal, maxillary, sphenoid and ethmoid sinuses are patent. There is opacification of the left nasal cavity and nostril which appears occluded by soft tissue mass or polyposis. 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 Sclerosis of the left frontal bone surrounding the frontal sinus likely related to chronic sinusitis. Visualized brain is unremarkable. Impression: 1. Asymmetric thickening of the left extraocular muscles concerning for fracture or ossicular muscle edema, a sign of left orbital cellulitis. Otherwise no stranding of the intraconal fat or subperiosteal abscess identified. 2. Left periorbital soft tissue stranding suspicious for periorbital cellulitis . 3. Chronic left sinusitis with opacification of the maxillary sinus and mucoperiosteal thickening of the remainder of the left paranasal sinuses and opacification of the left nasal cavity and nostril. 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 ------ Exposure: One or more of the following individualized dose reduction techniques were utilized for this examination: 1. Automated exposure control 2. Adjustment of the mA and/or kV according to patient size 3. Use of iterative reconstruction technique. Electronically signed by: Olivier Worley MD (04/08/2021 2:12 PM) [facility] DICTATED AND SIGNED BY: OLIVIER WORLEY MD DATE: 04/08/21 [id number] CC: BLUE EVANS MD; LORI RAMSAY DO ~MTH0 0 Heart Score: C/O Chest Pain: No Risk Factors: Risk Factors: DM, Current or recent (<one month) smoker, HTN, HLP, family history of CAD, obesity. Risk Scores: Score 0 - 3: 2.5% MACE over next 6 weeks - Discharge Home Score 4 - 6: 20.3% MACE over next 6 weeks - Admit for Clinical Observation Score 7 - 10: 72.7% MACE over next 6 weeks - Early Invasive Strategies Course & Med Decision Making: Course & Med Decision Making Pertinent Labs and Imaging studies reviewed. (See chart for details) Concern for left periorbital cellulitis with chemosis and concern for shingles rash over left upper face involving the nose-Ball signs present. No dendritic lesions or ulcers seen on fluorescein/Almeida lamp. Will treat for cellulitis and herpes zoster ophthalmicus and recommend very urgent follow-up with ophthalmology within 1 to 2 days. Daughter reports they canceled patient's eye appointment today at 3 PM. She understands importance of urgent follow- up/risk of blindness if not reevaluated and rash worsens. Shingles rash does not appear to be involving the orbit but some lesions are present on the upper eyelid. Will discharge home with strict ED return precautions were given for headache, neck stiffness, fever, neurologic deficits or confusion. Encouraged urgent outpatient follow-up with PMD and ophthalmology. Life-threatening processes were considered but are low suspicion at this time, given history, physical exam and ED workup. Pt was educated on all prescription medications and adverse effects. All patient's questions were answered and pt was stable at time of discharge. Life/limb-threatening differential includes but is not limited to, acute angle- closure glaucoma, uveitis, corneal abrasion, CRVO/CRAO, PRES, retinal detachment, vitreous hemorrhage, temporal arteritis, optic neuritis, high- altitude retinopathy foreign body, globe rupture, episcleritis, corneal ulcer, traumatic iritis, hyphema or empyema, orbital cellulitis, orbital hematoma, lens dislocation, orbital wall fracture or toxidrome (digoxin, methanol, anticholinergic, hallucinogenic, etc). I have spoken with the patient and/or caregivers. I explained the patient's condition, diagnoses and treatment plan based on the information available to me at this time. I have answered the patient and/or caregiver's questions and addressed any concerns. The patient and/or caregivers have a good understanding of patient's diagnosis, condition and treatment plan as can be expected at this point. Vital signs have been stable. Patient's condition is stable and appropriate for discharge from the emergency department. Patient will pursue further outpatient evaluation with primary care physician or other designated or consulting physician as outlined in the discharge instructions. The patient and/or caregivers are agreeable to this plan of care and follow-up instructions have been explained in detail. The patient and/or caregivers have received these instructions in written form and have expressed an understanding of the discharge instructions. The patient and/or caregivers are aware that any significant change of condition or worsening of symptoms should prompt immediate return to this or the closest emergency department or call to [facility] Disclaimer: Ced Disclaimer: This electronic medical record was generated, in whole or in part, using a voice recognition dictation system. Departure Departure: Impression: Primary Impression: Periorbital cellulitis of left eye Additional Impression: Chemosis of left conjunctiva Disposition: HOME / SELF CARE / HOMELESS Condition: STABLE Referrals: BLUE EVANS MD (PCP) Follow-up with your primary care physician in 24 to 48 hours OR FOLLOW UP WITH FAMILY MEDICINE: [address] [facility], [address] [address] Patient Instructions: Periorbital Cellulitis, Shingles Additional Instructions: FOLLOW UP WITH OPTHALMOLOGY: in 1- 2 days, days today is not consistent with any dendritic lesions that would indicate herpes zoster ophthalmicus-further treatment for cellulitis and herpes zoster ophthalmicus is prescribed [facility] [address] [facility], [facility] [address] [place], [place] [id number] EMERGENCY DEPARTMENT GENERAL DISCHARGE INSTRUCTIONS Thank you for coming to [facility] (ED) today and trusting us with you care. We trust that you had a positivie experience in our Emergency Department. If you wish to speak to the department management, you may call the director at [phone]. YOUR FOLLOW UP INSTRUCTIONS ARE FOLLOWS: 1. Do you have a private Doctor? If you do not have a private doctor, please ask for a resource list of physicians or clinics that may be able to assist you with follow up care. 2. The Emergency Physician has interpreted your x-rays. The X-Ray specialist will also review them. If there is a change in the findings, you will be notified in 48 hours when at all possible. 3. A lab test or culture has been done, your results will be reviewed and you will be notified if you need a change in treatment. ADDITIONAL INSTRUCTIONS AND INFORMATION: 1. Your care today has been supervised by a physician who is specially trained in emergency care. Many problems require more than one evaluation for a complete diagnosis and treatment. We recommend that you schedule your follow up appointment as recommended to ensure complete treatment of you illness or injury. If you are unable to obtain follow up care and continue to have a problem, or if your condition worsens, we recommend that you return to the ED. 2. We are not able to safely determine your condition over the phone nor are we able to give sound medical advice over the phone. For these safety reasons, if you call for medical advice we will ask you to come to the ED for further evaluation. 3. If you have any questions regarding these discharge instructions please call the ED at [phone]. SAFETY INFORMATION: In the interest of safety, wellness, and injury prevention; we encourage you to wear your sealbelt, if you smoke; quite smoking, and we encourage family to use a protective helmet for bicycling and other sporting events that present an increased risk for head injury. IF YOUR SYMPTOMS WORSEN OR NEW SYMPTOMS DEVELOP, OR YOU HAVE CONCERNS ABOUT YOUR CONDITION; OR IF YOUR CONDITION WORSENS WHILE YOU ARE WAITING FOR YOUR FOLLOW UP APPOINTMENT; EITHER CONTACT YOUR PRIMARY CARE DOCTOR, THE PHYSICIAN WHOSE NAME AND NUMBER YOU WERE GIVEN, OR RETURN TO THE ED IMMEDIATELY. Scripts Amoxicillin (AMOXICILLIN) 200 Mg/5 Ml Susp.recon 20 ML PO BID for otitis media MDD 19ml for 10 Days, #400 ML Prov: LORI RAMSAY DO 04/08/21 [bactrim] 200mg/40mg ORAL.SUSP No Conflict Check 20 ML PO BID for 10 Days, #400 ML Prov: LORI RAMSAY DO 04/08/21 Acyclovir (ACYCLOVIR) 200 Mg Capsule 4 CAP PO 5XDAY for herpes zoster for 7 Days, #140 CAP Prov: LORI RAMSAY DO 04/08/21 LORI RAMSAY DO Apr 08, 2021 14:21
[2021-04-08] MEDS ORDERED: bactrim PO (16:21)
[2021-04-08] MEDS ORDERED: ACYC200C84 PO (16:21)
[2021-04-08] MEDS ORDERED: AMOX200S2 PO (16:21)
== END 2021-04-08 17:15 | disposition home or self-care (01) ==
LOC: ER 11:25
DX: L03.213 Periorbital cellulitis (principal); H11.422 Conjunctival edema, left eye; F03.90 Unspecified dementia, unspecified severity, without behavioral disturbance, psychotic disturbance, mood disturbance, and anxiety; I10 Essential (primary) hypertension; E03.9 Hypothyroidism, unspecified; Z87.891 Personal history of nicotine dependence
CPT/HCPCS: 36415; 70480; 80053; 85025; 99284

== ENCOUNTER 2021-05-10 16:32 | Inpatient (IN) | payer OTHER ==
[~2021-05-10] VITALS: Ht 157.5 cm; Wt 50.7 kg
[~2021-05-10 16:32] MED LIST changes: +ACYC200C84 PO; +AMOX200S2 PO; +bactrim PO
[2021-05-10] MEDS ORDERED: IV NORMAL SALINE 1,000ML 1,000 ML IV ONE ×4 (16:45→18:30)
--- NOTE | 2021-05-10 16:45 | PHYS DOC ---
Past History Past Medical History: Dementia, Hypertension, Hypothyroid Additional Past Medical Histor: Possible dementia (ANNIKA PEREZ DO) Past Medical History: Arthritis, Bronchitis, CAD, CVA, Dementia, Stroke, UTI (GILMA NIETO MD) Past Surgical History: No Surgical History Additional Past Surgical Histo: GI (ANNIKA PEREZ DO) Smoking: Quit Greater Than 1 Year Alcohol Use: None Drug Use: None (ANNIKA PEREZ DO) General Adult EDM: Chief Complaint: AMS HPI: HPI: 86-year-old female presents via EMS with altered mental status. The patient is coming from home. The entire history comes from EMS reports. Patient was reported to have had pneumonia couple weeks ago. She is done with her antibiotics. She was at baseline at home with some dementia. Today, the patient was much less alert and aware. She was not arousable so family called EMS. When EMS arrived they found her pulse ox to be low, respirations high, and she was not responding to them. They were unable to establish an IV in route. (ANNIKA PEREZ DO) Review of Systems: Review of Systems: Unable to perform due to patient's mental status (ANNIKA PEREZ DO) Current Medications: Current Meds: Current Medications Medications (Trade) Dose Ordered Sig/Silvano Start Time Stop Time Status Last Admin Dose Admin Sodium Chloride 1,000 ml @ 1,000 mls/hr 1X ONCE 05/10/21 16:45 05/10/21 17:44 UNV (ANNIKA PEREZ DO) Allergies: Allergies: Allergies Coded Allergies Type Severity Reaction Last Updated Verified No Known Drug Allergies 12/15/20 No (ANNIKA PREEZ DO) Physical Exam: PE: Constitutional: Well developed, thin, moderate acute distress. [] HENT: Normocephalic, atraumatic, bilateral external ears normal, oropharynx very dry, no oral exudates, nose normal. [] Eyes: PERRLA, EOMI, conjunctiva normal, no discharge. [] Neck: Normal range of motion, no tenderness, supple, no stridor. [] Cardiovascular: Heart rate 135, regular rhythm, no murmur [] Lungs & Thorax: Bilateral breath sounds expiratory rales throughout. Resp iratory rate in the 40s, accessory muscle use. [] Abdomen: Bowel sounds normal, soft, no masses, no pulsatile masses. [] Skin: Warm, dry, no erythema, no rash. [] Back: No obvious trauma. [] Extremities: No tenderness, no cyanosis, no clubbing, ROM intact, no edema. [] Neurologic: Awake but not responding to commands. [] (ANNIKA PEREZ DO) EKG: EKG: Sinus rhythm, rate 131, normal axis, no ST elevation or depression. [] (ANNIKA PEREZ DO) Radiology/Procedures: Radiology/Procedures: [] Impressions: EXAM: Chest, single view. HISTORY: Altered mental status. COMPARISON: 12/15/2020 FINDINGS: A frontal view of the chest is obtained. There is right lower lobe interstitial infiltrate. There is no consolidation, pleural effusion or pneumothorax. The heart is normal in size. There are calcified granulomas. IMPRESSION: Right lower lobe pneumonia. Follow-up to confirm resolution. Electronically signed by: Valentina Morales MD (05/10/2021 4:55 PM) [id number] DICTATED AND SIGNED BY: VALENTINA MORALES MD DATE: 05/10/211654 CC: ANNIKA PEREZ DO; BLUE EVANS MD ~MTH0 0 (ANNIKA PEREZ DO) Radiology/Procedures: [address] [address] IMAGING REPORT Signed PATIENT: FELIPE GONZALES LACCOUNT: [id number] : 1935 LOCATION: ER HOLD AGE: 86 SEX: F EXAM STATUS: ADM IN ORD. PHYSICIAN: ANNIKA PEREZ DO REASON: ALTERED MENTAL STATUS, UNRESPONSIVE PROCEDURE: CT HEAD WO CONTRAST CT HEAD/BRAIN WO History: Altered mental status, unresponsive. Comparison: 12/15/2020 Technique: Noncontrast CT imaging was performed of the head. Findings: No intracranial hemorrhage. No mass effect. No hydrocephalus. No evidence of acute territorial infarction. Mild prominence of the ventricles and sulci with hypoattenuation the periventricular and deep white matter consistent with chronic microvascular ischemic changes. Redemonstrated right occipital encephalomalacia. Postsurgical changes the lenses. Orbits are otherwise unremarkable. Fluid level in the left maxillary sinus, chronic. The scalp and calvarium are unremarkable. Impression: 1. No acute intracranial abnormality. Redemonstrated old infarcts and chronic microvascular ischemic change. 2. Chronic left maxillary sinus opacification. ----- Exposure: One or more of the following individualized dose reduction techniques were utilized for this examination: 1. Automated exposure control 2. Adjustment of the mA and/or kV according to patient size 3. Use of iterative reconstruction technique. Electronically signed by: Olivier Worley MD (05/10/2021 8:25 PM) [facility] DICTATED AND SIGNED BY: OLIVIER WORLEY MD DATE: 05/10/212018 CC: ANNIKA PEREZ DO; QUITA ESQUEDA MD; BLUE EVANS MD ~MTH0 0 [place] [address] IMAGING REPORT Signed PATIENT: FELIPE GONZALES LACCOUNT: [id number] : 1935 LOCATION: ER AGE: 86 SEX: F EXAM STATUS: REG ER ORD. PHYSICIAN: ANNIKA PEREZ DO REASON: ALTERED MENTAL STATUS PROCEDURE: CHEST AP ONLY EXAM: Chest, single view. HISTORY: Altered mental status. COMPARISON: 12/15/2020 FINDINGS: A frontal view of the chest is obtained. There is right lower lobe interstitial infiltrate. There is no consolidation, pleural effusion or pneumothorax. The heart is normal in size. There are calcified granulomas. IMPRESSION: Right lower lobe pneumonia. Follow-up to confirm resolution. Electronically signed by: Valentina Morales MD (05/10/2021 4:55 PM) [id number] DICTATED AND SIGNED BY: VALENTINA MORALES MD DATE: 05/10/21 1655 CC: ANNIKA PEREZ DO; BLUE EVANS MD ~MTH0 0 (GILMA NIETO MD) Heart Score: C/O Chest Pain: N/A Risk Factors: Risk Factors: DM, Current or recent (<one month) smoker, HTN, HLP, family history of CAD, obesity. Risk Scores: Score 0 - 3: 2.5% MACE over next 6 weeks - Discharge Home Score 4 - 6: 20.3% MACE over next 6 weeks - Admit for Clinical Observation Score 7 - 10: 72.7% MACE over next 6 weeks - Early Invasive Strategies (ANNIKA PEREZ DO) C/O Chest Pain: N/A (GILMA NIETO MD) Course & Med Decision Making: Course & Med Decision Making Pertinent Labs and Imaging studies reviewed. (See chart for details) On arrival, the patient was not responding to our commands. She is responsive to pain. Patient is breathing on her own and seems to be maintaining her airway at this time. She is breathing at least 40 times a minute. She is in significant respiratory distress. Patient appears very dry. Her heart rate is in the 130s. Initial temp was normal. Patient appears to be in septic shock. Rectal temperature is 104. I ordered 2 L of normal saline, vancomycin, Zosyn. Labs and blood cultures were drawn prior to antibiotics. Patient's VBG shows a pH of 7.5, CO2 23, O2 124, O2 percent 99. We are having a difficult time getting a reading on the central pulse oximeter. She appears to be oxygenating based on VBG. Chest x-ray is significant for right-sided lobar pneumonia. Given her respiratory distress, we have placed her on BiPAP. Her rapid influenza and COVID are negative. I am signing out the patient to Dr. Nieto at 1800. [] (ANNIKA PEREZ DO) Course & [place] [address] IMAGING REPORT Signed PATIENT: FELIPE GONZALES LACCOUNT: [id number] : 1935 LOCATION: ER HOLD AGE: 86 SEX: F EXAM STATUS: ADM IN ORD. PHYSICIAN: ANNIKA PEREZ DO REASON: ALTERED MENTAL STATUS, UNRESPONSIVE PROCEDURE: CT HEAD WO CONTRAST CT HEAD/BRAIN WO History: Altered mental status, unresponsive. Comparison: 12/15/2020 Technique: Noncontrast CT imaging was performed of the head. Findings: No intracranial hemorrhage. No mass effect. No hydrocephalus. No evidence of acute territorial infarction. Mild prominence of the ventricles and sulci with hypoattenuation the periventricular and deep white matter consistent with chronic microvascular ischemic changes. Redemonstrated right occipital encephalomalacia. Postsurgical changes the lenses. Orbits are otherwise unremarkable. Fluid level in the left maxillary sinus, chronic. The scalp and calvarium are unremarkable. Impression: 1. No acute intracranial abnormality. Redemonstrated old infarcts and chronic microvascular ischemic change. 2. Chronic left maxillary sinus opacification. ----- Exposure: One or more of the following individualized dose reduction techniques were utilized for this examination: 1. Automated exposure control 2. Adjustment of the mA and/or kV according to patient size 3. Use of iterative reconstruction technique. Electronically signed by: Olivier Worley MD (05/10/2021 8:25 PM) [facility] DICTATED AND SIGNED BY: OLIVIER WORLEY MD DATE: 05/10/212018 CC: ANNIKA PEREZ DO; QUITA ESQUEDA MD; BLEU EVANS MD ~MTH0 [address] Perez chart for details prior shift change. Discussed pt. morbid prognosis with sister her primary rn long term care, and sister in law. They wish pt. to get antibiotics, fluids. DNR status. No intubation, No CPR, No shocks. FOCUS ON COMFORT CARE. Family want to talk to other family members before withdrawal of all care with antibiotics and fluid. Pt. a candidate for hospice care. Discussed presentation, testing and tx. plan with Dr. Esqueda Impression: 1. Sirs/ Sepsis 2. Rt. lower Pneumonia 3. Dementia 4 Fever 5. Leukocytosis 12.0 6. Anemia Hgb 9.9 7. Acute on Chronic Renal Failure BUN 82/Creat 2.1 8. Dehydration 9. Hypernatremia 159 10. Hyperkalemia 5.9 11. Elevate LFT's Alk Phos 162, ALt 109, AST 111 12. Malnutritioin Severe - Alb. 1.6 13. Elevated Lactic Acid 6.4 14. Decub Ulcers 15. Negative Flu vaccination this season, Negtive COVID- Post vaccination x 3 16. Morbid Prognosis- DNR - No intubation, No CPR, No Shocks- Focus on Comfort care- (Family for now want fluids and antibiotics) 17, Maxillary Sinusitis 18. Tachycardia (GILMA NIETO MD) Vladon Disclaimer: Dragshravan Disclaimer: This electronic medical record was generated, in whole or in part, using a voice recognition dictation system. (ANNIKA PEREZ DO) Departure Departure: Impression: Primary Impression: Sepsis Disposition: ADMITTED INPATIENT Admitting Physician: Quita Esqueda (ANNIKA PEREZ DO) Condition: GUARDED Referrals: BLUE EVANS MD (PCP) Sepsis Assessment: Date and Time of Assessment Date: May 10, 2021 Time: 16:51 (PEREZ,ANNIKA DO) Respirations Respiratory Effort: Accessory muscles, Retracting Respiratory Pattern: Tachypnea (PEREZ,ANNIKA DO) Cardiovascular Pulse Rhythm: Regular HEART: S1 and S2 normal (PEREZ,ANNIKA DO) Lung Sounds Breath Sounds: Coarse (PEREZ,ANNIKA DO) Capillary Refill Capillary Refill: Rt Hand > 3 seconds (PEREZ,ANNIKA DO) Peripheral Pulse Pulse Location: Monitor Pulse Strength: Weak (1+) Pulse Assessment Method: Monitor (PEREZ,ANNIKA DO) Integumentary Skin: Warm Skin Moisture: Dry Skin Turgor: Decreased Skin Color: no erythema Fingernail Color: WNL (PEREZ,ANNIKA DO) Sepsis Assessment: Date and Time of Assessment Date: May 10, 2021 Time: 17:45 (PEREZ,ANNIKA DO) Respirations Respiratory Effort: Accessory muscles, Retracting Respiratory Pattern: Tachypnea (PEREZ,ANNIKA DO) Cardiovascular Pulse Rhythm: Regular HEART: No murmurs noted (PEREZ,ANNIKA DO) Lung Sounds Breath Sounds: Coarse (PEREZ,ANNIKA DO) Capillary Refill Capillary Refill: Rt Hand > 3 seconds (PEREZ,ANNIKA DO) Peripheral Pulse Pulse Location: Monitor Pulse Strength: Normal (2+) Pulse Assessment Method: Monitor (PEREZ,ANNIKA DO) Integumentary Skin: Warm Skin Moisture: Dry Skin Turgor: Decreased Skin Color: no erythema Fingernail Color: WNL (PEREZ,ANNIKA DO) Attending Signature Attending Signature I have participated in the care of this patient and I have reviewed and agree with all pertinent clinical information above including history, exam, and recommendations. (GILMA NIETO MD) Attending Signature I have participated in the care of this patient and I have reviewed and agree with all pertinent clinical information above including history, exam, and recommendations. (ANNIKA PEREZ DO) Dragon Disclaimer This chart was dictated in whole or in part using Voice Recognition software in a busy, high-work load, and often noisy Emergency Department environment. It may contain unintended and wholly unrecognized errors or omissions. (GILMA NIETO MD) ANNIKA PEREZ DO May 10, 2021 16:45 GILMA NIETO MD May 10, 2021 19:04
--- NOTE | 2021-05-10 16:58 | RAD ---
EXAM: Chest, single view. HISTORY: Altered mental status. COMPARISON: 12/15/2020 FINDINGS: A frontal view of the chest is obtained. There is right lower lobe interstitial infiltrate. There is no consolidation, pleural effusion or pneumothorax. The heart is normal in size. There are calcified granulomas. IMPRESSION: Right lower lobe pneumonia. Follow-up to confirm resolution. Electronically signed by: Valentina Hilario MD (05/10/2021 4:55 PM) [id number]
[2021-05-10] MEDS ORDERED: PIPERACILLIN/TAZOBACTAM 3.375 GM in IV NORMAL SALINE 50ML 50 ML IV ONE (17:00)
[2021-05-10] MEDS ORDERED: VANCOMYCIN 1.25 GM in IV NORMAL SALINE 500ML 500 ML IV ONE (17:00)
[2021-05-10 17:06] LABS: BASO % 0 % (0-3); EOS % 0 % (0-3); HEMATOCRIT 34.1 % (36.0-47.0); HEMOGLOBIN 9.9 g/dL (12.0-15.5); LYMPH # 1.2 x10^3/uL (1.0-4.8); LYMPH % 10 % (24-48); MEAN CORPUSCULAR HEMOGLOBIN 27 pg (25-35); MEAN CORPUSCULAR HGB CONC 29 g/dL (31-37); MEAN CORPUSCULAR VOLUME 94 fL (79-100); MONO # 0.7 x10^3/uL (0.0-1.1); MONO % 6 % (0-9); NEUT # 10.1 x10^3uL (1.8-7.7); NEUT % 84 % (31-73); PLATELET COUNT 285 x10^3/uL (140-400); RED BLOOD COUNT 3.63 x10^6/uL (3.50-5.40); RED CELL DISTRIBUTION WIDTH 16.6 % (11.5-14.5)
[2021-05-10] MEDS ORDERED: VANCOMYCIN 1.25 GM in IV NORMAL SALINE 250ML 250 ML IV ONE (17:15)
[2021-05-10 17:17] LABS: INFLUENZA A PATIENT NEGATIVE (NEGATIVE); INFLUENZA B PATIENT NEGATIVE (NEGATIVE)
--- NOTE | 2021-05-10 17:22 | EKG ---
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
[2021-05-10 17:23] LABS: BGAS PH 7.51 (7.35-7.45)
[2021-05-10 17:31] LABS: ALBUMIN 1.6 g/dL (3.4-5.0); ALBUMIN/GLOBULIN RATIO 0.4 (1.0-1.7); CALCIUM 8.4 mg/dL (8.5-10.1); CREATININE 2.1 mg/dL (0.6-1.0); POTASSIUM 5.9 mmol/L (3.5-5.1); TOTAL BILIRUBIN 0.9 mg/dL (0.2-1.0)
[2021-05-10] MEDS ORDERED: PIPERACILLIN/TAZOBACTAM 3.375 GM VIAL IV ONE (17:52)
[2021-05-10] MEDS ORDERED: IV NORMAL SALINE 50ML 50 ML ONE (17:52)
[2021-05-10 18:01] LABS: COLOR,URINE YELLOW
[2021-05-10 18:02] LABS: BACTERIA,URINE MOD /HPF (0-FEW); BILIRUBIN,URINE SMALL (NEG); CLARITY,URINE CLOUDY; GLUCOSE,URINE NEG (NEG); NITRITE,URINE POS (NEG); SQUAMOUS EPITHELIAL CELL,UR MANY /LPF
[2021-05-10] MEDS ORDERED: PIP/TAZO PER PHARMACY MC PRN (18:30)
[2021-05-10] MEDS ORDERED: ONDANSETRON PF 4 MG/2 ML VIAL. IVP PRN (18:30)
[2021-05-10] MEDS ORDERED: ACETAMINOPHEN 325 MG TABLET PO PRN (18:30)
[2021-05-10] MEDS ORDERED: VANCOMYCIN PER PHARMACY MC PRN (19:00)
[2021-05-10] MEDS: IPRATRPIUM/ALBUTEROL 0.5/2.5MG 3 ML NEBU. NEB SCH (19:56)
[2021-05-10] MEDS ORDERED: PIPERACILLIN/TAZOBACTAM 2.25 GM in IV NORMAL SALINE 50ML 50 ML IV SCH (20:00)
--- NOTE | 2021-05-10 20:28 | RAD ---
CT HEAD/BRAIN WO History: Altered mental status, unresponsive. Comparison: 12/15/2020 Technique: Noncontrast CT imaging was performed of the head. Findings: No intracranial hemorrhage. No mass effect. No hydrocephalus. No evidence of acute territorial infar ction. Mild prominence of the ventricles and sulci with hypoattenuation the periventricular and deep white matter consistent with chronic microvascular ischemic changes. Redemonstrated right occipital e ncephalomalacia. Postsurgical changes the lenses. Orbits are otherwise unremarkable. Fluid level in the left maxillary sinus, chronic. The scalp and calvarium are unremarkable. Impression: 1. No acute intracranial abnormality. Redemonstrated old infarcts and chronic microvascular ischemic change. 2. Chronic left maxillary sinus opacification. ----- Exposure: One or more of the following individualized dose reduction techniques were utilized for thi s examination: 1. Automated exposure control 2. Adjustment of the mA and/or kV according to patient size 3. Use of iterative reconstruction technique. Electronically signed by: Olivier High MD (05/10/2021 8:25 PM) [facility]
--- NOTE | 2021-05-10 20:31 | RAD ---
Exam: CT of chest, abdomen and pelvis without contrast INDICATION: Altered mental status, unresponsive TECHNIQUE: Sequential axial images through the chest, abdomen and pelvis obtained without IV contrast . Sagittal and coronal reformatted images were reconstructed from the axial data and reviewed. Exposure: One or more of the following in the visualized dose reduction techniques were utilized for this examination: 1. Automated exposure control 2. Adjustment of the MA and/or KV according to patient size 3. Use of iterative of reconstructive technique Comparisons: 12/15/2020 FINDINGS: Heterogenous appearance of the thyroid gland. Several calcified nodules are partially visualized. No enlarged mediastinal lymph nodes. Heart size is normal. No pericardial effusion. Mild coronary artery calcifications. Thoracic aorta whitehead s normal course and caliber. Pulmonary artery is not enlarged. Mucous plugging noted in the right lower lobe airways. There is patchy consolidative changes noted th roughout the right lower lobe. No pneumothorax. No suspicious lung nodules. No pleural effusion or thickening. Evaluation solid organs limited secondary to noncontrast technique. Liver, spleen, pancreas and adrenals are unremarkable. Gallbladder is partially distended and not wel l evaluated. No perinephric inflammation or hydronephrosis. Nonobstructing left renal calculi. No ureteral calculi or evidence for obstructive uropathy. Bladder is decompressed. Murillo balloon noted in the bladder. Uterus is absent. No abnormal adnexal ma ss. Moderate amount of stool is noted throughout the colon. Appendix is normal. No free intra-abdominal a ir or fluid. No obstruction. Abdominal aorta has normal course and caliber. No enlarged intra-abdominal lymph nodes are identified. No suspicious osseous lesions or acute fractures. IMPRESSION: 1. Mucous plugging the right lower lobe with patchy consolidative changes throughout the right lower lobe. Findings could relate to aspiration. Superimposed infectious process is difficult to exclude. 2. Nonobstructing left renal calculi. No evidence for obstructive uropathy. Electronically signed by: Peter Lobo MD (05/10/2021 8:28 PM) [facility]
[2021-05-10 21:48] LABS: VANC PK 82.2 mcg/mL (20.0-40.0)
--- NOTE | 2021-05-10 22:00 | NUR ---
The patient, FELIPE GONZALES, 86 y/o, F was admitted by JORGE LUIS CANTU MD, to room 107. Unable to orient pt. Pt occasionally moves eyes to the left when speaking to her. No indication of understanding or response to this nurse. Assessments performed on pt. Bed alarm used for safety. Wounds photographed and marked for chart. [facility]
[2021-05-10] MEDS: IV DEXTROSE 5% 1,000 ML IV SCH (22:30)
[2021-05-10 23:18] VITALS: BP 145/83
[2021-05-11] MEDS: PIPERACILLIN/TAZOBACTAM 2.25 GM in IV NORMAL SALINE 50ML 50 ML IV SCH ×4 (01:09→18:14)
[2021-05-11] MEDS: IPRATRPIUM/ALBUTEROL 0.5/2.5MG 3 ML NEBU. NEB SCH ×3 (04:07→15:24)
[2021-05-11 06:03] VITALS: BP 80/42
[2021-05-11 07:12] VITALS: BP 99/53
[2021-05-11 07:47] LABS: BASO % 0 % (0-3); EOS % 0 % (0-3); HEMATOCRIT 28.1 % (36.0-47.0); HEMOGLOBIN 8.4 g/dL (12.0-15.5); LYMPH # 0.7 x10^3/uL (1.0-4.8); LYMPH % 6 % (24-48); MEAN CORPUSCULAR HEMOGLOBIN 27 pg (25-35); MEAN CORPUSCULAR HGB CONC 30 g/dL (31-37); MEAN CORPUSCULAR VOLUME 91 fL (79-100); MONO # 0.4 x10^3/uL (0.0-1.1); MONO % 4 % (0-9); NEUT # 10.4 x10^3uL (1.8-7.7); NEUT % 90 % (31-73); PLATELET COUNT 215 x10^3/uL (140-400); RED BLOOD COUNT 3.08 x10^6/uL (3.50-5.40); RED CELL DISTRIBUTION WIDTH 16.2 % (11.5-14.5); WHITE BLOOD COUNT 11.5 x10^3/uL (4.0-11.0)
[2021-05-11 08:49] LABS: CALCIUM 7.6 mg/dL (8.5-10.1); CREATININE 1.6 mg/dL (0.6-1.0); GFR 36.9; POTASSIUM 3.7 mmol/L (3.5-5.1)
[2021-05-11 08:50] VITALS: BP 110/61
[2021-05-11] MEDS ORDERED: VANCOMYCIN 1 GM in IV NORMAL SALINE 250ML 250 ML IV SCH (09:00)
[2021-05-11 11:25] VITALS: BP 112/68
[2021-05-11] MEDS: IV DEXTROSE 5% 1,000 ML IV SCH ×2 (11:33→18:14)
[2021-05-11 12:43] LABS: % BANDS 22 % (0-9); % LYMPHS 16 % (24-48); % METAS 2 % (0-0); % MONOS 2 % (0-10); % SEGS 58 % (35-66); PLT ESTIMATE ADEQUATE (ADEQUATE)
[2021-05-11 15:20] VITALS: BP 132/54
[2021-05-11] MEDS ORDERED: INSULIN LISPRO 300 UNITS/3 ML VIAL. SQ PRN (15:45)
[2021-05-11] MEDS ORDERED: DEXTROSE 50% 25 GM / 50ML DISP.SYRIN. IV PRN (15:45)
--- NOTE | 2021-05-11 16:48 | HP ---
DATE OF SERVICE: 05/11/2021 ADMIT DATE: 05/10/2021 HISTORY OF PRESENT ILLNESS: The patient is an 86-year-old -[place] female patient who was brought to the emergency room with altered mental status. The entire history comes from EMS reports. Apparently, the patient has had pneumonia a couple weeks ago. She has done with her antibiotics. She was at baseline at home with some dementia; however, on the day of admission, she was much less alert and awake, she was not arousable, so the family called EMS. When the EMS arrived there, they found her pulse oximetry to be low. They found her to be hypoxic and tachypneic and she was not responding to them. They were unable to establish an IV line on route and, therefore, she was brought to the emergency room where she was extensively investigated and has had lab work and imaging studies. Her lab work showed her white cell count was slightly high. She has normochromic normocytic anemia. Her blood gases showed that she is hyperventilating with a pH of 7.51, a pCO2 of 24 and her chemistry showed that she is extremely dehydrated. Her serum sodium was 159, potassium 5.9, chloride 121, bicarbonate 20, anion gap of 18, BUN 82, creatinine 2.1, estimated GFR was 27 and glucose 102, calcium was 8.4. Total bilirubin is normal; however, AST, ALT, alkaline phosphatase are all elevated. Total protein 6, albumin was 1.6. Her urinalysis showed the patient has 5-10 RBCs and many bacteria. Toxic screen showed that her vancomycin was extremely high at 82.2 and her coronavirus by rapid testing was negative. Her influenza A and B were negative. The patient was admitted with sepsis due to right lower lobe pneumonia, anemia, acute on chronic renal failure, severe hypernatremia, hyperkalemia, severe malnutrition, lactic acidosis and multiple decubitus ulcers. Her code status is DNR/DNI. The patient received multiple boluses of IV fluid including normal saline and was treated with piperacillin/tazobactam as well as vancomycin and was admitted for further evaluation and treatment. The patient herself does not give any useful information. PAST MEDICAL HISTORY: Significant for hypertension, hypothyroidism, dementia. She is also known to have coronary artery disease, pancreatitis and CVA. PAST SURGICAL HISTORY: Unremarkable. SOCIAL HISTORY: She is an ex-smoker, quit 3 years ago. Does not drink alcohol or use recreational drugs. She lives with her sister, no further information available. ALLERGIES: She has no known drug allergies. MEDICATIONS: She is currently on the following medications: She is on Namzaric 1 tablet once a day, levothyroxine sodium 25 mcg once a day. PHYSICAL EXAMINATION: GENERAL: On arrival to the emergency room, the patient looked cachectic and pale, but not jaundiced, cyanosed. No lymphadenopathy, no thyromegaly, no jugular venous distention. No lower limb edema. VITAL SIGNS: Her heart rate on arrival was 120, blood pressure was 99/53, temperature was 97.4, has risen up to 104.6 thereafter, her oxygen saturation was 98%. HEAD, EYES, EARS, NOSE, AND THROAT: Normocephalic, atraumatic. NECK: Supple. HEART: Showed normal first and second heart sounds. No gallop, rub or murmur. CHEST: Showed central trachea, equal bilateral chest expansion, air entry, vesicular breath sounds and crepitation mostly in the right side posteriorly. ABDOMEN: Scaphoid, soft, nontender. NEUROLOGIC: She is encephalopathic. LABORATORY DATA: On arrival showed a white cell count of 12,000, hemoglobin 9.9, hematocrit 34, MCV 94 and platelet count of 285,000 with normal manual differential. Her chemistry showed a serum sodium 159, potassium 5.9, chloride 121, bicarbonate 20, anion gap of 20, BUN 82, creatinine 2.1, estimated GFR was 27, glucose 102. Lactic acid was 6.4, calcium was 8.4. Total bilirubin is normal. AST, ALT, alkaline phosphatase are elevated. Total protein 6, albumin was 1.6. Her urinalysis essentially showed the urine was yellow, cloudy with a pH of 5, specific gravity 1.020, there was a small amount of protein. The urine was negative for glucose, ketones, blood, nitrite. There was small amount of bilirubin, negative for leukocyte esterase. Her toxic screen showed vancomycin peak value of 82 and her influenza A and B as well as coronavirus by rapid testing was negative. ASSESSMENT AND PLAN: The patient was rehydrated aggressively and was started on IV antibiotic in the form of vancomycin and Zosyn and was admitted for further evaluation and treatment. The admission diagnoses include severe hypernatremia, hyperkalemia, lactic acidosis, acute kidney injury, right lower lobe pneumonia, severe protein-calorie malnutrition, multiple decubitus ulcers. We will consult the wound care team. Continue with IV antibiotic. Continue with IV fluid. I will change IV fluid to D5W to replenish her excessive water deficit. GIOVANNY/JANETH/MARGO DR: Sherri TID: [id number]
[2021-05-11 19:00] VITALS: BP 108/61
--- NOTE | 2021-05-11 22:24 | PN ---
DATE: 05/11/2021 SUBJECTIVE: The patient has continued to be encephalopathic. She does not open her eyes spontaneously nor does she respond to verbal or painful stimuli. PHYSICAL EXAMINATION: GENERAL: When I examined her, she was pale, cachectic, but not jaundiced or cyanosed, no lymphadenopathy, no thyromegaly, no jugular venous distention. No lower limb edema. VITAL SIGNS: Her heart rate was 105, blood pressure is 112/68, temperature was 98.7, respiratory rate was 18 and oxygen saturation was 93% on 3 liters of oxygen. HEAD, EYES, EARS, NOSE AND THROAT: Normocephalic, atraumatic. NECK: Supple. HEART: Showed normal first and second heart sounds. No gallop, rub or murmur. CHEST: Clear to auscultation. No crepitation or rhonchi anteriorly. ABDOMEN: Scaphoid, soft, nontender. NEUROLOGIC: She has continued to be severely encephalopathic. She does not open her eyes, nor does she respond to painful or verbal stimuli. Her intake over the last 24 hours and output were incompletely recorded. LABORATORY DATA: This morning showed that her serum sodium continued to be high at 156, potassium 3.7, chloride 123, bicarbonate 20, anion gap of 13, BUN 75, creatinine 1.6. Estimated GFR was 36 mL per minute. Her glucose was 212, calcium was 7.6. Her white cell count was 11,500, hemoglobin 8.4, hematocrit 28, MCV 91, and platelet count 215,000 with normal manual differential. ASSESSMENT: 1. Severe sepsis, probably due to right lower lobe pneumonia. 2. Acute hypoxic respiratory failure. 3. Hypernatremia, hyperkalemia has resolved. 4. Acute kidney injury. 5. Severe protein-calorie malnutrition. PLAN: My plan is to switch her IV fluid to D5W and we will decide on further management accordingly. KUSH/BEAR DR: Sherri TID: [id number]
[2021-05-12] MEDS: PIPERACILLIN/TAZOBACTAM 2.25 GM in IV NORMAL SALINE 50ML 50 ML IV SCH ×4 (00:35→18:36)
[2021-05-12] MEDS: IV DEXTROSE 5% 1,000 ML IV SCH (04:15)
[2021-05-12 05:00] VITALS: BP 89/51
[2021-05-12 07:56] LABS: ALBUMIN/GLOBULIN RATIO 0.3 (1.0-1.7); CALCIUM 6.7 mg/dL (8.5-10.1); CREATININE 1.3 mg/dL (0.6-1.0); GFR 46.9; TOTAL BILIRUBIN 0.9 mg/dL (0.2-1.0); TOTAL PROTEIN 4.8 g/dL (6.4-8.2)
[2021-05-12 09:03] LABS: POTASSIUM 2.5 mmol/L (3.5-5.1)
[2021-05-12 09:36] LABS: ALBUMIN 1.2 g/dL (3.4-5.0); ALBUMIN/GLOBULIN RATIO 0.3 (1.0-1.7); CALCIUM 7.9 mg/dL (8.5-10.1); CREATININE 1.3 mg/dL (0.6-1.0); GFR 46.9; TOTAL PROTEIN 5.6 g/dL (6.4-8.2)
[2021-05-12 09:57] LABS: POTASSIUM 2.9 mmol/L (3.5-5.1)
[2021-05-12] MEDS: POTASSIUM CHLORIDE 40 MEQ in IV DEXTROSE 5% 1,000 ML IV SCH (14:34)
[2021-05-12 18:00] LABS: VANC TR 9.2 mcg/mL (10.0-20.0)
[2021-05-12] MEDS ORDERED: VANCOMYCIN 750 MG in IV NORMAL SALINE 250ML 250 ML IV SCH (18:00)
--- NOTE | 2021-05-12 18:18 | NUR ---
Pharmacy Vancomycin Dosing Note S:Consulted to monitor and dose vancomycin started 05/10/21. O:FELIPE GONZALES is a 86 year old F VANCO for Empiric treatment Dosing Weight: Actual Other Antibiotics: ZOSYN Last Trough level: 9.2 on 05/12/21 at 1730 Target Trough: 10-20 A: Based on: VANCO guidelines P: 1. Continue Vancomycin 750mg IV q48hrs 2. Follow up level per pharmacy 3. Pharmacy will continue to monitor, follow and adjust therapy as needed. FRANCISCO URBINA [facility]LY [facility] [place], 05/12/21 1104
[2021-05-12 20:38] VITALS: BP 88/45
--- NOTE | 2021-05-12 21:27 | PN ---
SUBJECTIVE: The patient is resting, slightly propped up in bed, continued to be unresponsive, encephalopathic. PHYSICAL EXAMINATION: GENERAL: When I examined her, she was pale, cachectic, but no jaundice, cyanosis. No lymphadenopathy, no thyromegaly, no jugular venous distention. No lower limb edema. VITAL SIGNS: Her heart rate was 121, blood pressure was 89/51, her temperature was 98.9, respiratory rate was 18 and oxygen saturation was 96% on 3 liters of oxygen. HEAD, EYES, EARS, NOSE, AND THROAT: Normocephalic, atraumatic. NECK: Supple. HEART: Normal first and second heart sounds. No gallop or murmur. CHEST: Showed central trachea, equal bilateral chest expansion, air entry, vesicular breath sounds, very few basilar crepitation mostly on the right side. ABDOMEN: Soft, scaphoid, nontender. NEUROLOGIC: She continued to be encephalopathic, nonverbal. She does not open her eyes spontaneously nor does she respond to verbal or painful stimuli. Her intake over the last 24 hours was 2350, output was 150. LABORATORY DATA: This morning showed a white cell count of 11,500, hemoglobin 8.4, hematocrit 28, MCV 91 and platelet count of 215,000. Her serum sodium was 152, potassium 2.9, chloride 119, bicarbonate 21, anion gap of 12, BUN 55, creatinine 1.3. Estimated GFR was 46 mL per minute. Her glucose 179, calcium was 7.9. Total bilirubin and alkaline phosphatase were normal. AST and ALT were slightly elevated. Total protein was 5.6, albumin was 1.2. TSH was 0.413. ASSESSMENT: 1. Severe sepsis, probably due to right lower lobe pneumonia. 2. Acute hypoxic respiratory failure. 3. Hypernatremia and hyperkalemia are improving. 4. Acute kidney injury. Her serum creatinine is down to 1.3. 5. Severe protein-calorie malnutrition. 6. The patient has now hypokalemia as her potassium came down from 5.9 down to 2.9 and her serum sodium continued to be high at 152. PLAN: My plan is to continue with D5 with 40 mEq of potassium chloride. I will repeat all her lab works again tomorrow and decide further management accordingly. Her overall prognosis is extremely poor. Once her sodium has normalized and her condition has not changed or mental status has not changed, we will have to talk to the family about hospice and end-of-life care. DEVYN DR: Sherri TID: [id number]
[2021-05-13 00:17] VITALS: BP 102/58
[2021-05-13] MEDS: PIPERACILLIN/TAZOBACTAM 2.25 GM in IV NORMAL SALINE 50ML 50 ML IV SCH ×4 (00:32→19:49)
[2021-05-13] MEDS: POTASSIUM CHLORIDE 40 MEQ in IV DEXTROSE 5% 1,000 ML IV SCH ×3 (04:32→19:49)
[2021-05-13 06:04] VITALS: BP 92/48
[2021-05-13 06:21] LABS: HEMATOCRIT 24.3 % (36.0-47.0); HEMOGLOBIN 7.6 g/dL (12.0-15.5); RED BLOOD COUNT 2.8 x10^6/uL (3.50-5.40); RED CELL DISTRIBUTION WIDTH 15.3 % (11.5-14.5); WHITE BLOOD COUNT 18.5 x10^3/uL (4.0-11.0)
[2021-05-13 06:30] LABS: ALBUMIN 1.1 g/dL (3.4-5.0); ALBUMIN/GLOBULIN RATIO 0.3 (1.0-1.7); CALCIUM 7.8 mg/dL (8.5-10.1); CREATININE 1.4 mg/dL (0.6-1.0); POTASSIUM 3.7 mmol/L (3.5-5.1); TOTAL BILIRUBIN 1.1 mg/dL (0.2-1.0); TOTAL PROTEIN 5.3 g/dL (6.4-8.2)
[2021-05-13 20:35] VITALS: BP 116/60
[2021-05-14] MEDS: PIPERACILLIN/TAZOBACTAM 2.25 GM in IV NORMAL SALINE 50ML 50 ML IV SCH ×2 (00:15→06:01)
[2021-05-14] MEDS: POTASSIUM CHLORIDE 40 MEQ in IV DEXTROSE 5% 1,000 ML IV SCH (05:48)
[2021-05-14 05:50] VITALS: BP 110/53
[2021-05-14 07:16] LABS: HEMATOCRIT 23.5 % (36.0-47.0); HEMOGLOBIN 7.4 g/dL (12.0-15.5); RED BLOOD COUNT 2.72 x10^6/uL (3.50-5.40); RED CELL DISTRIBUTION WIDTH 15.1 % (11.5-14.5); WHITE BLOOD COUNT 16.4 x10^3/uL (4.0-11.0)
[2021-05-14 07:22] LABS: ALBUMIN/GLOBULIN RATIO 0.3 (1.0-1.7); CALCIUM 7.7 mg/dL (8.5-10.1); CREATININE 1.2 mg/dL (0.6-1.0); GFR 51.4; POTASSIUM 4.6 mmol/L (3.5-5.1); TOTAL BILIRUBIN 1.3 mg/dL (0.2-1.0)
--- NOTE | 2021-05-14 09:26 | PN ---
DATE: 05/13/2021 SUBJECTIVE: The patient continued to be encephalopathic, nonverbal. Despite all the IV fluid, her sodium continued to be high at 151. PHYSICAL EXAMINATION: GENERAL: When I examined her today, she was almost flat in bed, in no apparent respiratory distress. She is pale, but not jaundiced or cyanosed, no lymphadenopathy, no thyromegaly, no jugular venous distention. No lower limb edema. VITAL SIGNS: Her heart rate was 102, blood pressure was 92/48, temperature 97.4, respiratory rate 28, and oxygen saturation was 94% on 3 liters of oxygen. HEAD, EYES, EARS, NOSE AND THROAT: Normocephalic, atraumatic. NECK: Supple. HEART: Showed normal first and second heart sounds. No gallop or murmur. CHEST: Showed central trachea, equal bilateral chest expansion, air entry, vesicular breath sounds. No crepitation or rhonchi. ABDOMEN: Scaphoid, soft, nontender. NEUROLOGIC: She is encephalopathic, nonverbal, does not open her eyes spontaneously nor does she respond to painful or verbal stimuli. Her intake was 2350, output was incompletely recorded. LABORATORY DATA: Her lab work showed her white cell count went up to 18,500, hemoglobin 7.6, hematocrit 24, MCV 87 and platelet count 229,000. Her serum sodium continued to be high at 151, potassium 3.7, chloride 119, bicarbonate 19, anion gap of 13, BUN 55, creatinine 1.4. Estimated GFR was 43 mL per minute. Her glucose 134, calcium was 7.8. Total bilirubin, AST, ALT, alkaline phosphatase were normal. Total protein 5.3, albumin was 1.1. ASSESSMENT: 1. Severe sepsis, probably due to right lower lobe pneumonia. 2. Acute hypoxic respiratory failure. 3. Hypernatremia and Hyperkalemia. 4. Acute kidney injury. 5. Severe protein-calorie malnutrition. 6. The patient has continued to be encephalopathic, nonverbal. She does not respond to verbal or painful stimuli without any improvement despite all the antibiotic and IV fluid. PLAN: My plan is to talk to the family regarding goals of care and probably hospice will be the best option available. GIOVANNY/JOANNE/JENNIFFER DR: Sherri TID: [id number]
[2021-05-14] MEDS: MORPHINE SULFATE 2 MG/ML DISP.SYRIN. IV SCH ×3 (11:15→14:07)
[2021-05-14] MEDS ORDERED: MORPHINE SULFATE 30 MG/30 ML 30 ML IV PRN (16:00)
[2021-05-14] MEDS: ACETAMINOPHEN 650 MG SUPP.RECT. PR PRN ×2 (16:14→20:32)
[2021-05-14] MEDS ORDERED: SCOPOLAMINE 1.5MG PATCH. TD SCH (16:30)
[2021-05-14 19:00] VITALS: BP 66/31
--- NOTE | 2021-05-14 19:00 | NUR ---
PER FAMILY WISHES, PT WAS SWITCHED TO COMFORT CARE MEASURES ONLY EARLIER TODAY. 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
--- NOTE | 2021-05-14 22:39 | NUR ---
AT 2210, PT WAS ASSESSED BY THIS RN AND ASUNCION RN AND EACH DETERMINED THAT THE PT HAS NO RESPONSE TO VERBAL OR TACTILE STIMULI; NO BREATH SOUNDS; RESP CHEST MOVEMENT OR APICAL HEART BEAT FOR ONE MINUTE; NO GAG REFLEX; AND NO PUPILLARY RESPONSE TO LIGHT. PT PRONOUNCED AT 2211. 2214: DR CANTU NOTIFIED OF PT . 2217: PT'S DAUGHTER MORE NOTIFIED OF PT . DTR IS NOT SURE WHICH HOME THE FAMILY WISHES TO USE, REQUESTS THAT THIS RN CALL BACK AT 0700 AFTER SHE IS ABLE TO REACH PT'S SISTER MELANIE. 2229: PIV AND NEWMAN REMOVED. PT CLEANSED AND BELONGINGS BAGGED (PJ PANTS AND SOCKS). PER NURSING SUP, PT IS OK TO BE RELEASED TO HOME ONCE SELECTED.
--- NOTE | 2021-05-14 23:26 | PN ---
DATE: 05/14/2021 SUBJECTIVE: The patient's further management was discussed with her family, daughter and DPOA, ____. The patient continued to be unresponsive and prognosis is extremely poor. She states that she would like all aggressive treatment stopped and to start comfort care. The hospice was contacted; however, apparently the patient has no criteria for inpatient hospice care and therefore, she was switched to comfort care and we did start her on morphine and Ativan. PHYSICAL EXAMINATION: GENERAL: When I saw her this morning, she was pale, cachectic, not jaundiced or cyanosed, no lymphadenopathy, no thyromegaly, no jugular venous distention, no lower limb edema. VITAL SIGNS: Her heart rate was 115, blood pressure was 110/53, temperature was 100.9, respiratory rate was 28 and oxygen saturation was 92% on 3 liters of oxygen. The rest of clinical exam is stable. LABORATORY DATA: This morning showed her serum sodium was 148, potassium 4.6, chloride 118, bicarbonate 18, anion gap of 12, BUN 46, creatinine 1.2. Estimated GFR was 51 mL per minute. Her glucose 152, calcium 7.7. Total bilirubin 1.3. AST, ALT normal. Alkaline phosphatase slightly elevated. Total protein 5, albumin 1. Her white cell count is down to 16,000, hemoglobin 7.4, hematocrit 24, MCV 86 and platelet count 226,000. ASSESSMENT: 1. Severe sepsis, probably due to right lower lobe pneumonia. 2. Acute hypoxic respiratory failure. 3. Hypernatremia and hyperkalemia, resolving. 4. Acute kidney injury. 5. Severe protein-calorie malnutrition. Serum albumin is only 1 g/dL. 6. Severe encephalopathy with no improvement. The patient actually has Carolann coma scale of 3. She does not open her eyes spontaneously nor does she respond to painful or verbal stimuli. PLAN: To continue with comfort care. She continued on morphine, Ativan and Tylenol for comfort. GIOVANNY/JEFF/VINCENT DR: GIOVANNY/yaz TID: [id number]
--- NOTE | 2021-05-15 06:55 | NUR ---
CONTACTED PT'S DTR MORE TO CHECK ON SELECTION OF HOME. MORE REPORTS SHE WOULD LIKE THE BODY RELEASED TO [facility]. HOME CONTACTED AND ARE EN ROUTE TO PROGRAM ADMINISTRATOR.
--- NOTE | 2021-05-15 08:34 | NUR ---
Nursing Note Patient picked up by [facility] at 0830.
--- NOTE | 2021-05-15 08:48 | DS ---
DATE OF DISCHARGE: 05/14/2021 ATTENDING PHYSICIAN: Quita Cantu MD DATE OF EXPIRATION: 05/14/2021 FINAL DISCHARGE DIAGNOSES: 1. Sepsis syndrome. 2. Acute respiratory failure. 3. Right lower lobe pneumonia. 4. Acute hypoxemic respiratory failure. 5. Hypernatremia and hyperkalemia. 6. Acute kidney injury. 7. Severe protein-calorie malnutrition. 8. Metabolic encephalopathy. HISTORY AND PHYSICAL: The patient is an 86-year-old female, admitted with encephalopathy, pneumonia and sepsis syndrome. Her prognosis was quite guarded. PHYSICAL EXAMINATION: Please see the dictated note. PERTINENT LABORATORY AND X-RAY STUDIES: Numerous here. Prior to discharge, her hemoglobin was down to 7.4 g/dL, white count 16,400. Chemistry panel: Sodium was 148 mEq/L, potassium replaced up to 4.6. Creatinine stabilized at 1.2 mg/dL. Chest x-ray demonstrated pneumonia in the right lower lobe. COURSE IN THE HOSPITAL: The patient had a progressive downward course despite treatment. She never recovered from encephalopathy. Family was notified. They wanted comfort measures. She was not a candidate for hospice. She was kept on comfort measures. On the evening of the 5th hospital day, the patient succumbed to her illness. The family was at the bedside. She was pronounced at 2230 hours on the evening of 05/14/2021. ROGE DR: Kaitlyn TID: [id number] CC: QUITA CANTU MD
== END 2021-05-15 08:30 | DRG 871 ==
LOC: ER 16:32 → ER HOLD 18:28 → 1 SOUTH 20:46
PROVIDERS: ADMIT Internal Medicine; ATTEND Internal Medicine
PROC: 5A09357 Assistance with Respiratory Ventilation, Less than 24 Consecutive Hours, Continuous Positive Airway Pressure (ICD-10-PCS; principal; 2021-05-10)
DX: A41.9 Sepsis, unspecified organism (principal); E43 Unspecified severe protein-calorie malnutrition; J96.01 Acute respiratory failure with hypoxia; J18.9 Pneumonia, unspecified organism; G93.41 Metabolic encephalopathy; E87.0 Hyperosmolality and hypernatremia; E87.2 Acidosis; N17.9 Acute kidney failure, unspecified; Z66 Do not resuscitate; D64.9 Anemia, unspecified; E86.0 Dehydration; E03.9 Hypothyroidism, unspecified; F03.90 Unspecified dementia, unspecified severity, without behavioral disturbance, psychotic disturbance, mood disturbance, and anxiety; Z51.5 Encounter for palliative care; I25.10 Atherosclerotic heart disease of native coronary artery without angina pectoris; I12.9 Hypertensive chronic kidney disease with stage 1 through stage 4 chronic kidney disease, or unspecified chronic kidney disease; N18.9 Chronic kidney disease, unspecified; E87.5 Hyperkalemia; L89.90 Pressure ulcer of unspecified site, unspecified stage; R65.20 Severe sepsis without septic shock; E87.6 Hypokalemia; Z87.891 Personal history of nicotine dependence; Z87.01 Personal history of pneumonia (recurrent); Z86.73 Personal history of transient ischemic attack (TIA), and cerebral infarction without residual deficits; Z20.822 Contact with and (suspected) exposure to COVID-19; Z68.20 Body mass index [BMI] 20.0-20.9, adult
CPT/HCPCS: 36415; 36600; 70450; 71045; 71250; 74176; 80048; 80053; 80202; 81001; 82550; 82803; 82947; 83605; 84443; 84484; 85007; 85025; 85027; 87040; 87086; 87428; 93005; 94640; 94660; 96365; 96366; 96375; J1815; J2060; J2270; J2543; J3370; J3480; J7050; U0003; 99285-25; J7030